=== PATIENT | female | born 1945 | race Caucasian/White ===

== ENCOUNTER → 2016-04-18 | Outpatient (CLI) | payer BC ==
[~2016-04-18] MED LIST: ASPI81TA28 PO; BIOTCAP2 PO; SIMV20TA2 PO
[2016-04-18 13:17] LABS: BASO % 0.2 %; BASO ABS # 0.01 K/uL (0-0.2); COMPLETE YES; EOS % 1.3 %; HEMATOCRIT 41.4 % (37-47); IG% 0.2 %; LYMPH % 27.9 %; LYMPH ABS # 1.77 K/uL (1.2-3.4); MEAN CELL VOLUME 88.3 fL (80-100); MEAN CORPUSCULAR HEMOGLOBIN 30.1 pg (25-34); MEAN CORPUSCULAR HGB CONC 34.1 g/dl (32-36); MEAN PLATELET VOLUME 11.3 fL (7.4-10.4); MONO % 6.8 %; NEUT % 63.6 %; PLATELET COUNT 269 K/uL (130-400); RED BLOOD COUNT 4.69 M/uL (4.2-5.4); WHITE BLOOD COUNT 6.34 K/uL (4.8-10.8)
[2016-04-18 13:39] LABS: GLUCOSE 103 mg/dl (70-99)
[2016-04-18 13:40] LABS: BLOOD UREA NITROGEN 10 mg/dl (7-18); BUN/CREATININE RATIO 12.3 (10-20); CARBON DIOXIDE 27 mmol/L (21-32); CHLORIDE 104 mmol/L (98-107); CREATININE 0.83 mg/dl (0.60-1.20); POTASSIUM 4.2 mmol/L (3.5-5.1); SODIUM 140 mmol/L (136-145)
== END | disposition home or self-care (01) ==
LOC: C.LABSPEC 12:39
PROVIDERS: ATTEND Internal Medicine
DX: M54.2 Cervicalgia (principal); I10 Essential (primary) hypertension

== ENCOUNTER → 2016-07-01 | Outpatient (CLI) | payer BC ==
--- NOTE | 2016-07-01 07:29 | DIAGNOSTIC IMAGING REPORT ---
CT OF THE CHEST WITHOUT IV CONTRAST CLINICAL HISTORY: Interstitial lung disease. Nonspecific immunological findings. COMPARISON STUDY: Chest CT May 04, 2015. CT DOSE: 242.41 mGy.cm TECHNIQUE: Axial images of the chest were obtained without IV contrast. Images were reviewed in the axial, sagittal, and coronal planes. IV contrast was not administered for this examination. FINDINGS: No enlarged axillary, mediastinal or hilar lymph nodes are present. The heart is mildly enlarged. There is no pericardial effusion. There is no pneumothorax or pleural effusion. The central airways are patent. Subpleural reticulation and groundglass opacities are similar to exam of May 04, 2015 with mild progression since exam of October 21, 2013. No definite honeycombing is identified. Bony thorax is unremarkable as is the upper abdomen. IMPRESSION: 1. Subpleural reticulation and groundglass opacities consistent with interstitial lung disease suggestive of a NSIP pattern. No significant change exam of May 04, 2015 with mild progression since study of October 21, 2013. 2. No acute intrathoracic findings. Electronically signed by: Osmani Love M.D. 07/01/2016 7:27 AM Dictated Date/Time: 07/01/2016 7:19 AM
== END | disposition home or self-care (01) ==
LOC: C.CTS 06:41
PROVIDERS: ATTEND Internal Medicine Pulmonary Disease
DX: J84.9 Interstitial pulmonary disease, unspecified (principal); R89.4 Abnormal immunological findings in specimens from other organs, systems and tissues

== ENCOUNTER → 2016-07-12 | Outpatient (CLI) | payer BC ==
[~2016-07-12] MED LIST changes: +PERFLUTREN LIPID MICROSPHERE (DEFINITY) IV ONE
--- NOTE | 2016-07-12 15:43 | EXERCISE STRESS ECHO ---
*NOTICE TO RECEIVING [employer]ENCY This information is strictly Confidential and protected under [place] law. [place] law prohibits you from making any further disclosure of this information unless further disclosure is expressly permitted by the written consent of the person to whom it pertains or is authorized by law. A general authorization for the release of medical or other information is not sufficient for this purpose. Hospital accepts no responsibility if the information is made available to any other person, INCLUDING THE PATIENT. Interpretation Summary * Name: SANDEEP VIVAS Study Date: 07/12/2016 09:40 AM BP: 137/83 mmHg * Patient Location: [facility] HR: 97 * : 1945 (M/d/yyyy) Gender: Female Height: 60 in * Age: 71 yrs Ethnicity: CA Weight: 150 lb * Ordering Physician: HUSSEIN. DONAVAN VARNER * Performed By: Gissel Moura * * Reason For Study: LEFT SIDED CHEST PAIN * BSA: 1.7 m2 * -- Conclusions -- * Stress Echo: * 1. Negative stress echo for ischemia at 108% MPHR. * 2. Negative exercise ECG for ischemia at 108% MPHR. * 3. No chest pain reported. * 4. No arrhythmia. * 5. Mildly hypertensive response to exercise. * 6. Exercised 4 minutes and 30 seconds on standard Cristo protocol. * 7. Technically difficult study, enhanced with IV Definity. * Echo: * 1. Small left ventricular cavity with normal systolic function. EF 60-65%. No regional wall motion abnormalities. No left ventricular hypertrophy. Type I diastolic dysfunction. * 2. No significant valvular abnormalities visualized. Procedure Details * ECHOEX, CPT #[id number] * ECHO DOPPLER, CPT #[id number] * ECHO COLOR FLOW, CPT #[id number] * A contrast injection of Definity was performed to improve assessment of LV function. * Contrast was injected into an intravenous site in the left arm. * One vial of Definity ultrasound contrast was diluted in normal saline to a total volume of 10 ml. A total of '4' ml of solution was administered during imaging. * Lot # [id number] of Definity utilized for procedure. * Expiration date 07/12. * The attending nurse who injected the contrast agent was ALLAN FRANCE RN. Left Ventricle * The left ventricular cavity is small. * There is normal left ventricular wall thickness. * Left ventricular systolic function is normal. * The left ventricular ejection fraction increases normally with stress. The left ventricular end-systolic cavity size reduces post-stress (normal response). The left ventricular wall motion with stress is normal. * Resting wall motion: Normal. Stress wall motion: Appropriate increase in Left ventricular systolic function and decrease in cavity size. No stress induced segmental wall motion abnormalities. Right Ventricle * The right ventricle is normal in size and function. * The right ventricular systolic function is normal as assessed by tricuspid annular plane systolic excursion (TAPSE) (normal >1.5 cm). Atria * The left atrial size is normal. * Right atrial size is normal. * There is no evidence of atrial septal defect, but resolution does not allow assessment for a patent foramen ovale. Mitral Valve * The mitral valve is grossly normal. * There is no mitral valve stenosis. * Significant mitral regurgitation is absent. Tricuspid Valve * The tricuspid valve is not well visualized. * There is no tricuspid stenosis. * There is trace tricuspid regurgitation. Aortic Valve * The aortic valve is trileaflet. * No hemodynamically significant valvular aortic stenosis. * No aortic regurgitation is present. Pulmonic Valve * The pulmonary valve is inadequately visualized, but the Doppler data is adequate for interpretation. * There is no significant pulmonary regurgitation. Great Vessels * The aortic root is normal size. * Ascending aorta of normal dimension * Normal pulmonary venous flow pattern. Pericardium * There is no pericardial effusion. Stress Parameters * NSR at 80 bpm. * Stress ECG: No ST changes. No arrhythmias. * The stress portion of this study was personally supervised by the undersigned interpreting physician. * Rest heart rate was '97' BPM. * Rest blood pressure was '137/83' * Maximum heart rate achieved was 164 bpm. * Maximum heart rate was 108 % of maximum age-predicted heart rate. * Maximum blood pressure was '201/76' * Total exercise time was '4:30' * Maximum exercise MET level achieved was '6.80' METS * Maximum treadmill speed was '2.50' miles per hour. * Maximum treadmill elevation was '12.00'% grade. * Exercise was terminated due to 'target heart rate achieved.' * The patient exhibited leg pain during exercise. * Normal blood pressure response to exercise. MMode 2D Measurements and Calculations IVSd 1.0 cm LVIDd 3.1 cm LVIDs 1.8 cm LVPWd 0.93 cm IVS/LVPW 1.1 FS 43.0 % EDV(Teich) 38.3 ml ESV(Teich) 9.4 ml EF(Teich) 75.5 % EDV(cubed) 30.2 ml ESV(cubed) 5.6 ml EF(cubed) 81.4 % LV mass(C)d 83.8 grams LV mass(C)dI 50.7 grams/m\S\2 SV(Teich) 28.9 ml SI(Teich) 17.5 ml/m\S\2 SV(cubed) 24.6 ml SI(cubed) 14.9 ml/m\S\2 Ao root diam 2.9 cm Ao root area 6.7 cm\S\2 ACS 1.0 cm LA dimension 2.9 cm asc Aorta Diam 2.9 cm LA/Ao 10 LVOT diam 2.0 cm LVOT area 3.0 cm\S\2 LVAd ap4 21.0 cm\S\2 LVLd ap4 6.9 cm EDV(MOD-sp4) 52.2 ml EDV(sp4-el) 54.0 ml LVAs ap4 12.6 cm\S\2 LVLs ap4 5.9 cm ESV(MOD-sp4) 23.9 ml ESV(sp4-el) 22.9 ml EF(MOD-sp4) 54.2 % EF(sp4-el) 57.6 % LVLd ap2 7.1 cm LVLs ap2 5.1 cm SV(MOD-sp4) 28.3 ml SI(MOD-sp4) 17.1 ml/m\S\2 SV(sp4-el) 31.1 ml SI(sp4-el) 18.8 ml/m\S\2 Doppler Measurements and Calculations MV E max jennifer 71.3 cm/sec MV A max jennifer 95.6 cm/sec MV E/A 0.75 MV dec time 0.35 sec Ao V2 max 156.1 cm/sec Ao max PG 9.7 mmHg Ao max PG (full) 6.8 mmHg CARMEN(V,A) 1.6 cm\S\2 CARMEN(V,D) 1.6 cm\S\2 LV V1 max PG 2.9 mmHg LV V1 max 85.6 cm/sec PA V2 max 68.4 cm/sec PA max PG 1.9 mmHg
--- NOTE | 2016-07-18 09:51 | CODING QUERY MEDICAL NECESSITY ---
SUPPORTING DIAGNOSIS NEEDED A supporting diagnosis is required for the test/procedure performed on this patient in order for us to be reimbursed by the patient's insurance. Please provide a supporting diagnosis for the following test/procedure listed below next to the test name along with your signature. *If there is no additional diagnosis for this patient that would support the following test/procedure please document that below next to the test/procedure. Test(s)/Procedure(s) that require a supporting diagnosis: DOS 07/12 * Exercise Stress Test DIAGNOSIS: Provider Signature: Date: Thank you Shea Douglas Health Information Management Once completed, please kindly fax back to [phone] For questions please call [phone]
== END | disposition home or self-care (01) ==
LOC: C.CPL 09:25
PROVIDERS: ATTEND Internal Medicine
DX: R07.89 Other chest pain (principal)

== ENCOUNTER → 2016-07-27 | Outpatient (CLI) | payer BC ==
[~2016-07-27] MED LIST changes: -PERFLUTREN LIPID MICROSPHERE (DEFINITY) IV ONE
== END | disposition home or self-care (01) ==
LOC: C.LAB 08:13
PROVIDERS: ATTEND Internal Medicine Pulmonary Disease
DX: J84.9 Interstitial pulmonary disease, unspecified (principal)

== ENCOUNTER → 2016-09-02 | Outpatient (CLI) | payer BC ==
[2016-09-02 12:53] LABS: ALB/GLOB RATIO 1.1 (0.9-2); ALKALINE PHOSPHATASE 83 U/L (45-117); ALT/SGPT 25 U/L (12-78); AST/SGOT 16 U/L (15-37); BLOOD UREA NITROGEN 21 mg/dl (7-18); BUN/CREATININE RATIO 20.7 (10-20); CALCIUM 10.1 mg/dl (8.5-10.1); CARBON DIOXIDE 27 mmol/L (21-32); CHLORIDE 98 mmol/L (98-107); CHOLESTEROL 161 mg/dl (0-200); CHOLESTEROL/HDL RATIO 3.1; CREATININE 0.99 mg/dl (0.60-1.20); GLUCOSE 89 mg/dl (70-99); HDL CHOLESTEROL 52 mg/dl; MAGNESIUM 2.3 mg/dl (1.8-2.4); POTASSIUM 4.5 mmol/L (3.5-5.1); SODIUM 134 mmol/L (136-145); TRIGLYCERIDES 133 mg/dl (0-150); VERY LOW DENSITY LIPOPROT CALC 27 mg/dl
== END | disposition home or self-care (01) ==
LOC: C.LABSPEC 09:30
PROVIDERS: ATTEND Internal Medicine
DX: I10 Essential (primary) hypertension (principal); E78.5 Hyperlipidemia, unspecified; R25.2 Cramp and spasm; E55.9 Vitamin D deficiency, unspecified

== ENCOUNTER → 2016-10-17 | Outpatient (CLI) | payer BC ==
--- NOTE | 2016-10-17 14:30 | MAMMOGRAPHY REPORT ---
BILATERAL DIGITAL SCREENING MAMMOGRAM WITH CAD: 10/17/2016 CLINICAL HISTORY: Routine screening. Patient has no complaints. TECHNIQUE: Current study was also evaluated with a Computer Aided Detection (CAD) system. Bilateral CC and MLO views were obtained. COMPARISON: Comparison is made to exams dated: 10/15/2015 mammogram, 10/08/2014 mammogram, 04/21/2014 u ltrasound, 04/21/2014 mammogram, 10/07/2013 mammogram, and 10/02/2012 mammogram - [facility]. BREAST COMPOSITION: There are scattered areas of fibroglandular density in both breasts. FINDINGS: No suspicious masses, calcifications, or areas of architectural distortion are noted in ei ther breast. There has been no significant interval change compared to prior exams. There are stable post surgical changes from bilateral reduction mammoplasty. Bilateral benign-appearing calcificatio ns and bilateral asymmetries are not significantly changed. IMPRESSION: ACR BI-RADS CATEGORY 2: BENIGN There is no mammographic evidence of malignancy. A 1 year screening mammogram is recommended. The pa tient will receive written notification of the results. Approximately 10% of breast cancers are not detected with mammography. A negative mammographic report should not delay biopsy if a clinically suggestive mass is present. Emma Aburto M.D. ah/:10/17/2016 08:22:24 Field Map Technician: Nguyen GARDNER)(M), [facility] letter sent: Normal 1/2 BI-RADS Code: ACR BI-RADS Category 2: Benign
== END | disposition home or self-care (01) ==
LOC: C.MAMM 07:26
PROVIDERS: ATTEND Internal Medicine
DX: Z12.31 Encounter for screening mammogram for malignant neoplasm of breast (principal)

== ENCOUNTER → 2017-01-11 | Outpatient (CLI) | payer BC ==
[2017-01-11 13:00] LABS: BASO % 0.3 %; BASO ABS # 0.02 K/uL (0-0.2); COMPLETE YES; EOS % 2.8 %; HEMATOCRIT 36.4 % (37-47); IG% 0.2 %; LYMPH % 31.1 %; LYMPH ABS # 2.03 K/uL (1.2-3.4); MEAN CELL VOLUME 88.6 fL (80-100); MEAN CORPUSCULAR HEMOGLOBIN 29.2 pg (25-34); MEAN PLATELET VOLUME 10.7 fL (7.4-10.4); MONO % 10.4 %; NEUT % 55.2 %; PLATELET COUNT 287 K/uL (130-400); RED BLOOD COUNT 4.11 M/uL (4.2-5.4); WHITE BLOOD COUNT 6.53 K/uL (4.8-10.8)
[2017-01-11 13:08] LABS: BLOOD UREA NITROGEN 17 mg/dl (7-18); BUN/CREATININE RATIO 19.1 (10-20); CARBON DIOXIDE 28 mmol/L (21-32); CHLORIDE 98 mmol/L (98-107); CHOLESTEROL 188 mg/dl (0-200); CREATININE 0.91 mg/dl (0.60-1.20); GLUCOSE 94 mg/dl (70-99); POTASSIUM 4.5 mmol/L (3.5-5.1); SODIUM 133 mmol/L (136-145)
[2017-01-11 13:11] LABS: HDL CHOLESTEROL 62 mg/dl; TRIGLYCERIDES 120 mg/dl (0-150); VERY LOW DENSITY LIPOPROT CALC 24 mg/dl
== END | disposition home or self-care (01) ==
LOC: C.LABSPEC 12:28
PROVIDERS: ATTEND Internal Medicine
DX: E78.5 Hyperlipidemia, unspecified (principal); I10 Essential (primary) hypertension; N84.1 Polyp of cervix uteri; E55.9 Vitamin D deficiency, unspecified

== ENCOUNTER → 2017-01-11 | Outpatient (CLI) | payer BC | END | disposition home or self-care (01) | LOC: C.PAPS 13:40 | PROVIDERS: ATTEND Internal Medicine | DX: Z12.4 Encounter for screening for malignant neoplasm of cervix (principal); Z78.0 Asymptomatic menopausal state; N84.1 Polyp of cervix uteri ==

== ENCOUNTER → 2017-01-19 | Outpatient (CLI) | payer BC | END | disposition home or self-care (01) | LOC: C.PATHSPEC 13:14 | PROVIDERS: ATTEND Obstetrics & Gynecology | DX: N84.1 Polyp of cervix uteri (principal) ==

== ENCOUNTER → 2017-07-13 | Outpatient (CLI) | payer BC ==
[2017-07-13 12:56] LABS: BASO % 0.3 %; BASO ABS # 0.02 K/uL (0-0.2); EOS % 3.4 %; EOS ABS # 0.22 K/uL (0-0.5); HEMOGLOBIN 12.8 g/dL (12.0-16.0); IG# 0.01 K/uL (0.00-0.02); LYMPH % 32.1 %; LYMPH ABS # 2.06 K/uL (1.2-3.4); MEAN CELL VOLUME 87.8 fL (80-100); MEAN CORPUSCULAR HEMOGLOBIN 29.6 pg (25-34); MEAN CORPUSCULAR HGB CONC 33.7 g/dl (32-36); MEAN PLATELET VOLUME 10.5 fL (7.4-10.4); MONO % 9.2 %; MONO ABS # 0.59 K/uL (0.11-0.59); NEUT % 54.8 %; NEUT ABS # 3.52 K/uL (1.4-6.5); PLATELET COUNT 292 K/uL (130-400); RED CELL DISTRIBUTION WIDTH CV 12.7 % (11.5-14.5); WHITE BLOOD COUNT 6.42 K/uL (4.8-10.8)
[2017-07-13 13:41] LABS: ALT/SGPT 25 U/L (12-78); BLOOD UREA NITROGEN 20 mg/dl (7-18); CALCIUM 10.1 mg/dl (8.5-10.1); CARBON DIOXIDE 28 mmol/L (21-32); CREATININE 0.95 mg/dl (0.60-1.20); GLUCOSE 92 mg/dl (70-99); LIPASE 133 U/L (73-393); POTASSIUM 4.2 mmol/L (3.5-5.1); SODIUM 131 mmol/L (136-145)
[2017-07-13 13:43] LABS: ALKALINE PHOSPHATASE 85 U/L (45-117); AST/SGOT 18 U/L (15-37); TOTAL PROTEIN 8.3 gm/dl (6.4-8.2)
== END | disposition home or self-care (01) ==
LOC: C.LABSPEC 12:31
PROVIDERS: ATTEND Internal Medicine
DX: I10 Essential (primary) hypertension (principal); R10.11 Right upper quadrant pain; R10.12 Left upper quadrant pain; E78.5 Hyperlipidemia, unspecified

== ENCOUNTER → 2017-07-14 | Outpatient (CLI) | payer BC ==
--- NOTE | 2017-07-14 08:24 | DIAGNOSTIC IMAGING REPORT ---
GALLBLADDER-ABD LIMITED CLINICAL HISTORY: 72 years-old Female presenting with UPPER ABD PAIN. TECHNIQUE: Real-time grayscale and limited color Doppler ultrasound imaging of the abdomen limited to the right upper quadrant was performed. COMPARISON: Ultrasound from 05/30/2006. FINDINGS: Pancreas: Visualized portions of the pancreatic head and body normal. Liver: Hyperechogenic parenchyma with heterogeneous echotexture, likely indicating fibrosis or steatosis. The liver measures 17.0 cm in maximal sagittal dimension. No sonographic evidence of hepatic mass. Main portal vein patent with normal directional flow. Biliary: No intrahepatic biliary ductal dilatation. Common bile duct measures up to 6 mm in diameter. Gallbladder: Gallbladder sludge. No evidence of gallstones, gallbladder wall thickening, gallbladder distention, or pericholecystic fluid or inflammatory change. Right kidney: Normal in appearance. No hydronephrosis. Ascites: None. Other: None. IMPRESSION: 1. Gallbladder sludge. No cholelithiasis or biliary ductal dilatation. 2. Hyperechogenic and heterogeneous liver parenchyma could indicate underlying fibrosis or steatosis. Electronically signed by: Milton Britton M.D. 07/14/2017 8:22 AM Dictated Date/Time: 07/14/2017 8:18 AM
== END | disposition home or self-care (01) ==
LOC: C.ULTR 07:07
PROVIDERS: ATTEND Internal Medicine
DX: R10.10 Upper abdominal pain, unspecified (principal)

== ENCOUNTER → 2017-07-31 | Outpatient (CLI) | payer BC ==
--- NOTE | 2017-07-31 10:08 | DIAGNOSTIC IMAGING REPORT ---
CHEST 2 VIEWS ROUTINE CLINICAL HISTORY: 72 years-old Female presenting with J84.9 Interstitial lung [id number]. TECHNIQUE: PA and lateral views of the chest were obtained. COMPARISON: 10/06/[address] from 07/01/2016. FINDINGS: Atherosclerosis of the aortic arch. Cardiac silhouette normal in size. Peripheral reticulation noted greater on the right. Mildly low lung volumes. No other focal opacity. No pleural effusion or pneumothorax. Osseous structures normal. Upper abdomen normal. IMPRESSION: 1. Chronic lung disease with peripheral reticulation suggesting fibrosis. No superimposed infiltrate to suggest infection or acute disease. Electronically signed by: Milton Britton M.D. 07/31/2017 10:06 AM Dictated Date/Time: 07/31/2017 10:05 AM
== END | disposition home or self-care (01) ==
LOC: C.RAD1850 09:24
PROVIDERS: ATTEND Internal Medicine Pulmonary Disease
DX: J84.9 Interstitial pulmonary disease, unspecified (principal)

== ENCOUNTER → 2017-10-20 | Outpatient (CLI) | payer BC ==
[~2017-10-20] MED LIST changes: +CHOL2000 PO; +LISI-461 PO; +NAPR1TAB9 PO; +TRIA37.5 PO
--- NOTE | 2017-10-20 15:39 | MAMMOGRAPHY REPORT ---
BILATERAL DIGITAL SCREENING MAMMOGRAM TOMOSYNTHESIS WITH CAD: 10/20/2017 CLINICAL HISTORY: Routine screening. Patient has no complaints. TECHNIQUE: The study was acquired using full field digital technology and interpreted from soft copy. Breast tomosynthesis in addition to standard 2D mammography was performed. Current study was also ev aluated with a Computer Aided Detection (CAD) system. COMPARISON: Comparison is made to exams dated: 10/17/2016 mammogram, 10/15/2015 mammogram, 10/08/2014 m ammogram, 04/21/2014 ultrasound, 04/21/2014 mammogram, and 10/07/2013 mammogram - [facility]. BREAST COMPOSITION: There are scattered areas of fibroglandular density in both breasts. FINDINGS: No suspicious masses, calcifications, or areas of architectural distortion are noted in either breast . There has been no significant interval change compared to prior exams. There are stable post surg ical changes from bilateral reduction mammoplasty. Bilateral benign-appearing calcifications and rosie ateral asymmetries are not significantly changed. IMPRESSION: ACR BI-RADS CATEGORY 2: BENIGN There is no mammographic evidence of malignancy. A 1 year screening mammogram is recommended.( 019) The patient will receive written notification of the results. Some breast cancers are not detected with mammography. A negative mammographic report should not klaudia y biopsy if a clinically suggestive mass is present. Emma Aburto M.D. /:10/20/2017 07:55:53 Brass Cleaner: RT Néstor(R)(M), [facility] letter sent: Normal 1/2 BI-RADS Code: ACR BI-RADS Category 2: Benign
== END | disposition home or self-care (01) ==
LOC: C.MAMM 07:41
PROVIDERS: ATTEND Internal Medicine
DX: Z12.31 Encounter for screening mammogram for malignant neoplasm of breast (principal)

== ENCOUNTER → 2017-11-01 | Outpatient (CLI) | payer BC ==
[~2017-11-01] MED LIST changes: -BIOTCAP2 PO; +OXYC-57 PO
[2017-11-01 16:12] LABS: BLOOD UREA NITROGEN 21 mg/dl (7-18); CALCIUM 9.2 mg/dl (8.5-10.1); CARBON DIOXIDE 26 mmol/L (21-32); CREATININE 1.44 mg/dl (0.60-1.20); GLUCOSE 97 mg/dl (70-99); POTASSIUM 4.4 mmol/L (3.5-5.1); SODIUM 131 mmol/L (136-145)
== END | disposition home or self-care (01) ==
LOC: C.LAB 14:25
PROVIDERS: ATTEND Internal Medicine
DX: E87.1 Hypo-osmolality and hyponatremia (principal)

== ENCOUNTER 2017-11-02 06:07 | Day surgery (SDC) | payer BC ==
[2017-10-27 08:44] VITALS: BMI 29.0
--- NOTE | 2017-10-30 11:44 | PAT Medication Instructions ---
Service Date Oct 30, 2017. Current Home Medication List Aspirin (Aspirin Ec), 81 MG PO QPM Cholecalciferol (Vitamin D3), 1 CAP PO QPM Lisinopril (Zestril), 10 MG PO BID Naproxen (Aleve), 440 MG PO PRN Simvastatin (Zocor), 20 MG PO QPM Triamterene/Hctz (Dyazide 37.5MG/25MG), 0.5 TAB PO NOON Medication Instructions For Your Scheduled Surgery -Instructions per surgeon: Aspirin (Aspirin Ec), 81 MG PO QPM Naproxen (Aleve), 440 MG PO PRN - Hold the following medications the morning of surgery: Lisinopril (Zestril), 10 MG PO BID - Take the following medications as scheduled the afternoon/night before surgery : Cholecalciferol (Vitamin D3), 1 CAP PO QPM Lisinopril (Zestril), 10 MG PO BID Simvastatin (Zocor), 20 MG PO QPM Triamterene/Hctz (Dyazide 37.5MG/25MG), 0.5 TAB PO NOON *NOTHING TO EAT OR DRINK AFTER MIDNIGHT* If you have any questions please call us at [phone] or [phone] or [phone]
[2017-10-30 12:07] VITALS: BMI 29.0
[2017-10-30 13:17] LABS: BASO % 0.3 %; BASO ABS # 0.02 K/uL (0-0.2); EOS % 3.9 %; EOS ABS # 0.23 K/uL (0-0.5); HEMATOCRIT 35.7 % (37-47); HEMOGLOBIN 12.1 g/dL (12.0-16.0); IG# 0.01 K/uL (0.00-0.02); LYMPH % 36.9 %; LYMPH ABS # 2.17 K/uL (1.2-3.4); MEAN CELL VOLUME 86.2 fL (80-100); MEAN CORPUSCULAR HEMOGLOBIN 29.2 pg (25-34); MEAN CORPUSCULAR HGB CONC 33.9 g/dl (32-36); MEAN PLATELET VOLUME 10.3 fL (7.4-10.4); MONO % 9.9 %; MONO ABS # 0.58 K/uL (0.11-0.59); NEUT % 48.8 %; NEUT ABS # 2.87 K/uL (1.4-6.5); PLATELET COUNT 277 K/uL (130-400); RED CELL DISTRIBUTION WIDTH CV 12.5 % (11.5-14.5); RED CELL DISTRIBUTION WIDTH SD 40.2 fL (36.4-46.3); WHITE BLOOD COUNT 5.88 K/uL (4.8-10.8)
[2017-10-30 14:00] LABS: CALCIUM 9.3 mg/dl (8.5-10.1); CREATININE 0.96 mg/dl (0.60-1.20); POTASSIUM 4.2 mmol/L (3.5-5.1)
[~2017-11-02] VITALS: Ht 154.9 cm; Wt 69.0 kg
[~2017-11-02 06:07] MED LIST changes: +LACTATED RINGER'S 1000ML IV SCH; -OXYC-57 PO
[2017-11-02 06:43] VITALS: BP 125/70; PULSE 69; TEMP 36.7; O2SAT 96; Ht 154.9 cm; Wt 69.0 kg
[2017-11-02] MEDS ORDERED: FENTANYL CITRATE INJ 50 MCG/1 ML 2 ML VIAL ONE ×2 (07:24→08:30)
[2017-11-02] MEDS ORDERED: MIDAZOLAM HCL 1 MG/ML 2ML VIAL ONE (07:24)
--- NOTE | 2017-11-02 07:56 | History & Physical Bridge Note ---
H&P Re-Evaluation Bridge Note: I have examined the patient, reviewed the History & Physical and in the interval since the performance of the History & Physical I have noted the following changes of clinical significance: No changes noted family at bedside' all questions answered
[2017-11-02] MEDS ORDERED: CONRAY 60% 50 ML VIAL ONE (07:59)
[2017-11-02] MEDS ORDERED: LIDOCAINE/EPINEPHRINE 1% 20 ML VIAL ONE (07:59)
[2017-11-02] MEDS ORDERED: ONDANSETRON INJ 2 MG/ML 2 ML VIAL ONE ×2 (08:27→08:50)
[2017-11-02] MEDS ORDERED: HYDROmorphone INJ 1 MG/ML SYR IV PRN (08:45)
[2017-11-02] MEDS ORDERED: FENTANYL CITRATE INJ 50 MCG/1 ML 2 ML VIAL IV PRN (08:45)
[2017-11-02] MEDS ORDERED: PHENYLEPHRINE 100MCG/ML 5ML SYR IV PRN (08:45)
[2017-11-02] MEDS ORDERED: ONDANSETRON INJ 2 MG/ML 2 ML VIAL IV PRN ×2 (08:45→09:30)
[2017-11-02] MEDS ORDERED: EpHEDrine SULFATE INJ 50 MG/ML AMP IV PRN (08:45)
[2017-11-02] MEDS ORDERED: ATROPINE SULFATE 0.1 MG/ML 5ML SYR IV PRN (08:45)
[2017-11-02] MEDS ORDERED: HYDROmorphone INJ 2 MG/ML SYR/VIAL ONE (08:49)
[2017-11-02] MEDS ORDERED: KETOROLAC TROMETHAMINE 30 MG/ML VIAL ONE (08:50)
[2017-11-02] MEDS ORDERED: DEXAMETHASONE SOD INJ 4 MG/ML VIAL ONE (08:50)
[2017-11-02] MEDS ORDERED: GLYCOPYRROLATE INJ 0.2 MG/ML VIAL ONE (08:50)
[2017-11-02] MEDS ORDERED: LIDOCAINE HCL 2% 2 ML VIAL (20MG/ML) ONE (08:50)
[2017-11-02] MEDS ORDERED: ROCURONIUM BROMIDE 10 MG/ML 5 ML VIAL ONE (08:50)
[2017-11-02] MEDS ORDERED: PROPOFOL IV EMULSION 10 MG/ML 20 ML VIAL ONE (08:50)
[2017-11-02] MEDS ORDERED: NEOSTIGMINE METHYLSULFATE 5 MG/5 ML SYR ONE (08:50)
--- NOTE | 2017-11-02 09:14 | [facility] Post Operative Brief Note ---
Immediate Operative Summary Operative Date Nov 02, 2017. Pre-Operative Diagnosis Gallbladder Sludge Post-Operative Diagnosis Gallbladder Sludge Procedure(s) Performed Laparoscopic Cholecystectomy with Cholangiogram Surgeon Dr. Prashant Londono [employer]iztalk Software Developer Surgeon(s) Madelyn Rey PA-C Estimated Blood Loss 5 ml Findings See Below as post op Specimens A.) Gallbladder and contents Anesthesia Type General
[2017-11-02] MEDS ORDERED: SODIUM CHLORIDE 0.9% 1000ML 1,000 ML IV SCH (09:27)
[2017-11-02] MEDS ORDERED: OXYC-57 PO ×2 (09:29)
[2017-11-02] MEDS ORDERED: OXYCODONE/ACETAMINOPHEN 5-325 TAB PO PRN ×2 (09:30)
--- NOTE | 2017-11-02 09:31 | Discharge Instructions ---
Discharge Instructions Date of Service Nov 02, 2017. Admission Reason for Admission: Sludge In Gallbladder Discharge Discharge Diagnosis / Problem: Sludge in Gallbladder Discharge Goals Goal(s): Decrease discomfort, Improve function Activity Recommendations Activity Limitations: as noted below Lifting Limitations: no more than 10 pounds Exercise/Sports Limitations: until after follow-up appointment May Resume Sexual Activity: after follow-up appointment Shower/Bathe: tomorrow Driving or Machine Use: resume 3 days after discharge . Instructions / Follow-Up Instructions / Follow-Up You have steri-strips over your incisions. Please leave those on- do not peel or pick them off. They will fall off by themselves in the next several days. Please follow-up with Dr. Londono in the General Surgery clinic. Please call [phone] to make an appointment if you do not have one already. Please call the clinic with any questions or concerns. Current Hospital Diet Patient's current hospital diet: Discharge Diet Recommended Diet: Regular Diet Procedures Procedures Performed: Laparoscopic Cholecystectomy with Cholangiogram Pending Studies Studies pending at discharge: yes List of pending studies: Pathology report. Medical Emergencies . Who to Call and When: Medical Emergencies: If at any time you feel your situation is an emergency, please call 911 immediately. . Non-Emergent Contact Non-Emergency issues call your: Primary Care Provider, Surgeon Call Non-Emergent contact if: temperature is above 101.5, your pain is not controlled, wound has increased drainage, wound has increased redness . "Provider Documentation" section prepared by Madelyn Rey. .
--- NOTE | 2017-11-02 10:01 | DIAGNOSTIC IMAGING REPORT ---
CHOLANGIOGRAM O.R. CLINICAL HISTORY: Intraoperative cholangiogram. COMPARISON STUDY: Right upper quadrant ultrasound July 14, 2017. FLUOROSCOPY TIME: 3.5 seconds. FINDINGS: 1 fluoroscopic image was obtained during intraoperative cholangiogram which demonstrates contrast within the duodenum. No filling defect within the common bile duct is identified to suggest choledocholithiasis. Partially opacified intrahepatic bile ducts are normal. IMPRESSION: No evidence for choledocholithiasis. Electronically signed by: Osmani Love M.D. 11/02/2017 9:59 AM Dictated Date/Time: 11/02/2017 9:58 AM
--- NOTE | 2017-11-02 10:05 | Anesthesiology Progress Note ---
Anesthesia Post Op Note Date & Time Nov 02, 2017 at 10:05 Vital Signs Pain Intensity: 0 Vital Signs Past 12 Hours Date Time Temp Pulse Resp B/P (MAP) Pulse Ox O2 Delivery O2 Flow Rate FiO2 11/02/17 10:00 61 16 149/74 98 Room Air 11/02/17 09:50 62 16 155/82 100 Oxymask 10 11/02/17 09:40 81 16 149/78 100 Oxymask 11/02/17 09:33 36.6 104 16 154/83 99 Oxymask 10 11/02/17 06:43 36.7 69 18 125/70 (88) 96 Room Air Notes Mental Status: alert / awake / arousable, participated in evaluation Pt Amnestic to Procedure: Yes Nausea / Vomiting: adequately controlled Pain: adequately controlled Airway Patency, RR, SpO2: stable & adequate BP & HR: stable & adequate Hydration State: stable & adequate Anesthetic Complications: no major complications apparent
[2017-11-02 10:20] VITALS: BP 146/73; PULSE 60; TEMP 36; O2SAT 95
--- NOTE | 2017-11-02 10:28 | OPERATIVE REPORT ---
DATE OF OPERATION: 11/02/2017 SURGEON: Prashant Londono MD [employer]ING [employer]LL OPERATOR: Madelyn Rey, physician marketing administrative assistant. PREOPERATIVE DIAGNOSIS: Chronic cholecystitis. POSTOPERATIVE DIAGNOSIS: Same. PROCEDURE: Laparoscopic cholecystectomy, intraoperative cholangiogram. SUMMARY: We had the assistance of Madelyn Rey, a physician marketing administrative assistant to help me through these procedures. She was there throughout the case. She helped with prep, retract the gallbladder, and help close. After general anesthesia, the abdomen was prepped with Betadine solution and properly draped. We made a small transverse incision above the bowel sufficient enough to place a Veress needle followed by a 5 mm trocar. Point of entry inspected, no injury identified. Under direct visualization, we placed a 5 mm epigastric trocar with preemptive local analgesia of 1% Xylocaine. Once we visualized this area, the patient had some adhesions to the anterior abdominal wall lateral to the umbilicus down toward the right gutter. We took these down by sharp dissection. It seemed to be just omental adhesions to the anterior abdominal wall. We then placed two 5 mm subcostal ports with preemptive local analgesia of 1% Xylocaine. Gallbladder was long. It was placed to traction. It had significant adhesions to the gallbladder, these were chronic in nature, these were taken down. Gallbladder was significantly long and redundant on itself. We then dissected down to the triangle of Calot. We were able to identify the lymph node easily. The artery was strictly adherent to the cystic duct, which we mobilized and clipped proximally twice and once distally and divided. The cystic duct was then identified as a takeoff of the gallbladder. A clip was placed proximally. A small opening in the cystic duct was made. A #4 urethral catheter transverse the abdominal wall, positioned in the cystic duct which revealed a very long corkscrew cystic duct, free flow of dye into the duodenum, no evidence of biliary filling defects. At this point, we checked up on the cystic duct toward the common bile duct from the initial area where we entered with the catheter, approximately another half inch or so. Catheter was removed. The cystic duct was securely clipped twice and divided. We then took the gallbladder in the antegrade fashion using electrocautery. Small bleeder from the gallbladder fossa was cauterized. The gallbladder was removed intact in an Endopouch through the epigastric port suctioned out. The subhepatic-suprahepatic area was then checked for hemostasis and appeared satisfactory. We used the lateral port site on the right to visualize the umbilical opening, and there were no adhesions to the anterior abdominal wall where we entered with the trocar. The adhesions we initially saw on the right flank go into right flank area. We divided some fine adhesions more. We did not completely take it down. This was all omentum. There was no evidence of any bowel into that area. Individual trocars removed under direct visualization and last umbilical trocar. Wounds were closed with 4-0 Monocryl. Steri-Strips applied. Procedure was tolerated well by the patient. Estimated blood loss was approximately 5 mL. Patient was taken to recovery in good condition. I attest to the content of the Intraoperative Record and any orders documented therein. Any exception s are noted below.
[2017-11-02 10:50] VITALS: BP 139/64; PULSE 52; TEMP 36.6; O2SAT 99
[2017-11-02 11:20] VITALS: BP 157/88; PULSE 53; TEMP 36.6; O2SAT 99
== END 2017-11-02 12:20 | disposition home or self-care (01) ==
LOC: C.ACU 06:07
PROVIDERS: ATTEND Surgery
DX: K81.1 Chronic cholecystitis (principal); I10 Essential (primary) hypertension; K57.90 Diverticulosis of intestine, part unspecified, without perforation or abscess without bleeding; E78.00 Pure hypercholesterolemia, unspecified; E78.5 Hyperlipidemia, unspecified; K64.8 Other hemorrhoids; Z79.82 Long term (current) use of aspirin; Z88.2 Allergy status to sulfonamides

== ENCOUNTER 2019-06-27 00:16 | Observation (INO) ==
[2019-06-27] MEDS ORDERED: ALBUTEROL HFA 8 GM INHALER INH ONE (00:51)
[2019-06-27 01:01] LABS: Basophils # (auto) 0.02 K/uL (0-0.2); Basophils % (auto) 0.2 %; Eosinophils # (auto) 0.53 K/uL (0-0.5); Hemoglobin 13.1 g/dL (12.0-16.0); Immature Granulocytes # (auto) 0.02 K/uL (0.00-0.02); Immature Granulocytes % (auto) 0.2 %; Lymphocytes # (auto) 2.81 K/uL (1.2-3.4); Lymphocytes % (auto) 26.7 %; Mean Corpuscular Hemoglobin 29.8 pg (25-34); Mean Corpuscular Hgb Conc 35.4 g/dL (32-36); Mean Corpuscular Volume 84.1 fL (80-100); Mean Platelet Volume 10.8 fL (7.4-10.4); Monocytes % (auto) 6.7 %; Neutrophils # (auto) 6.44 K/uL (1.4-6.5); Neutrophils % (auto) 61.2 %; Platelet Count 351 K/uL (130-400); RDW Coefficient of Variation 12.3 % (11.5-14.5); RDW Standard Deviation 37.8 fL (36.4-46.3); White Blood Count 10.52 K/uL (4.8-10.8)
--- NOTE | 2019-06-27 01:08 | Emergency Department Note ---
History of Present Illness General Chief complaint: Respiratory Problems Stated complaint: RESPIRATORY DIFFICULTY Time Seen by Provider: 06/27/19 00:25 Source: patient Mode of arrival: ambulatory Limitations: no limitations History of Present Illness Provider complaint: Shortness of breath Onset (ago): week(s) 3 Severity: moderate Exacerbated By: + movement Associated symptoms: + denies other symptoms Treatments prior to arrival: none This is a 74-year-old female with a history of pulmonary fibrosis who presents for increased shortness of breath. Patient states her pulmonary fibrosis had been considered mild and well-controlled until approximately a year ago when she began to have more symptoms. Patient states over the last 3 months she felt her symptoms were worsening still, particularly with exertion. 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 Patient does not currently use home oxygen, MDI or nebulizer treatments, no steroids. Patient states she and her winter in [place] and they have been down there for 2 months. No known sick contacts. They do live with other family members and they have not been ill. Patient denies any accompanying fevers or chills, cough or change in sputum, chest pain, vomiting or diarrhea, leg swelling or calf pain. Patient states she did contact her architectural intern upon arriving home yesterday, but had not received a return phone call from the office yet. She had wanted to discuss her worsening symptoms over the last several weeks. Tonight patient states after going to bed she awoke and felt more short of breath. Patient states she does typically check her pulse ox and at rest her pulse ox is in the low to mid 90s. Patient states with exertion she will frequently dropped to the 70s, however will mouna zoe with rest. Home Medications Home Medications Medication Instructions Recorded Confirmed Type aspirin 81 mg PO DAILY 04/26/18 06/27/19 History cholecalciferol (vitamin D3) 2,000 unit PO DAILY 04/26/18 06/27/19 History [Vitamin D3] lisinopril 10 mg PO BID 04/26/18 06/27/19 History simvastatin 20 mg PO DAILY 04/26/18 06/27/19 History triamterene-hydrochlorothiazid 1 tab PO DAILY 04/26/18 06/27/19 History omeprazole 10 mg PO DAILY 06/27/19 06/27/19 History doxycycline hyclate 100 mg PO BID #18 cap 04/03/20 Rx Allergies Allergy/AdvReac Type Severity Reaction Status Date / Time Sulfa (Sulfonamide Allergy Unknown ITCHING Verified 06/27/19 00:52 Antibiotics) AND RASH Sulfa Drugs Allergy Mild Rash Uncoded 06/27/19 00:52 Past Med/Surg History Medical History (Updated 06/29/19 @ 00:02 by Az Paulson) GERD (gastroesophageal reflux disease) Surgical History H/O bilateral breast reduction surgery History of bunionectomy History of salpingo-oophorectomy Hx of cholecystectomy (Resolved) Family History Other Colorectal cancer Pulmonary fibrosis Social History Preferred Language: Uzbek Communication Ability: Effective 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 and A total of 10 systems reviewed and were otherwise negative Physical Exam Vital Signs Vital Signs - 24 hr 06/27/19 00:23 06/27/19 00:32 06/27/19 01:11 Temperature 37.0 C Temperature Source Oral Pulse Rate 79 Pulse Rate [Apical] 78 Respiratory Rate 20 25 H Blood Pressure 102/77 Blood Pressure [Left Arm] 131/92 Blood Pressure Mean 85 Blood Pressure Mean [Left Arm] 105 Pulse Oximetry 88 L 100 97 Oxygen Delivery Method Room Air Nasal Cannula Nasal Cannula Oxygen Flow Rate 4 4 Sepsis Recent Fever Within 48 Hours No Sepsis New/Unexplained Change in Mental Status No Sepsis Action Taken by Nursing No Action Required 06/27/19 02:09 06/27/19 02:59 06/27/19 04:00 Temperature Temperature Source Pulse Rate Pulse Rate [Apical] 81 84 79 Respiratory Rate 26 H 26 H 18 Blood Pressure Blood Pressure [Left Arm] 147/91 H 136/96 151/79 H Blood Pressure Mean Blood Pressure Mean [Left Arm] 109 109 103 Pulse Oximetry 99 100 100 Oxygen Delivery Method Nasal Cannula Nasal Cannula Nasal Cannula Oxygen Flow Rate 4 4 4 Sepsis Recent Fever Within 48 Hours Sepsis New/Unexplained Change in Mental Status Sepsis Action Taken by Nursing 06/27/19 04:30 06/27/19 06:00 Temperature Temperature Source Pulse Rate Pulse Rate [Apical] 72 72 Respiratory Rate 23 23 Blood Pressure Blood Pressure [Left Arm] 128/81 127/81 Blood Pressure Mean Blood Pressure Mean [Left Arm] 96 96 Pulse Oximetry 99 100 Oxygen Delivery Method Nasal Cannula Nasal Cannula Oxygen Flow Rate 4 4 Sepsis Recent Fever Within 48 Hours Sepsis New/Unexplained Change in Mental Status Sepsis Action Taken by Nursing GENERAL: alert, well appearing, well nourished, mild distress, non-toxic EYE EXAM: normal conjunctiva, PERRL and EOM's grossly intact OROPHARYNX: no exudate, no erythema, lips, buccal mucosa, and tongue normal and mucous membranes are moist NECK: supple, no nuchal rigidity, no adenopathy, non-tender LUNGS: Clear to auscultation. Normal chest wall mechanics, rales at bilateral bases, mild tachypnea, no retractions, no nasal flaring, no tripoding HEART: no murmurs, S1 normal and S2 normal ABDOMEN: abdomen soft, non-tender, normo-active bowel sounds, no masses, no rebound or guarding. BACK: Back is symmetrical on inspection and there is no deformity, no midline tenderness, no CVA tenderness. SKIN: no rashes and no bruising UPPER EXTREMITIES: upper extremities are grossly normal. FROM, nml pulses b/l. LOWER EXTREMITIES: No pitting edema. FROM, nml pulses b/l. NEURO EXAM: Normal sensorium, cranial nerves II-XII grossly intact, normal speech, no gross weakness of arms, no gross weakness of legs. Gross sensation intact. Course Course 0245: Vital signs stable. 0420: Updated patient on all results. She is in agreement with plan. 0515: Discussed with Dr. Laird. Administered Medications Discontinued Medications Albuterol (Ventolin Hfa) 2 puffs INH NOW ONE Stop: 06/27/19 00:52 Last Admin: 06/27/19 01:11 Dose: 2 puffs Documented by: [id number] Albuterol (Ventolin Hfa) 2 puffs INH QID SARAH Stop: 07/27/19 09:05 Last Admin: 06/28/19 12:00 Dose: 2 puffs Documented by: [id number] Admin: 06/28/19 08:10 Dose: 2 puffs Documented by: [id number] Admin: 06/27/19 20:41 Dose: 2 puffs Documented by: [id number] Admin: 06/27/19 17:10 Dose: 2 puffs Documented by: [id number] Admin: 06/27/19 12:27 Dose: Not Given Documented by: [id number] Admin: 06/27/19 11:07 Dose: 2 puffs Documented by: [id number] Aspirin (Ecotrin Ectab) 81 mg PO DAILY SARAH Stop: 07/27/19 09:05 Last Admin: 06/28/19 08:09 Dose: 81 mg Documented by: [id number] Admin: 06/27/19 11:06 Dose: 81 mg Documented by: [id number] Doxycycline Hyclate (Vibramycin) 100 mg PO NOW STA Stop: 06/27/19 13:45 Last Admin: 06/27/19 14:23 Dose: 100 mg Documented by: [id number] Doxycycline Hyclate (Vibramycin) 100 mg PO BID SARAH Stop: 07/04/19 20:59 Last Admin: 06/28/19 08:10 Dose: 100 mg Documented by: [id number] Admin: 06/27/19 20:40 Dose: 100 mg Documented by: [id number] Heparin Sodium (Porcine) (Heparin Sodium (Porcine)) 5,000 units SQ Q12 SARAH Stop: 07/27/19 09:05 Last Admin: 06/28/19 08:15 Dose: 5,000 units Documented by: [id number] Cosigned by: [id number] Admin: 06/27/19 20:40 Dose: 5,000 units Documented by: [id number] Cosigned by: [id number] Admin: 06/27/19 12:26 Dose: 5,000 units Documented by: [id number] Cosigned by: [id number] Magnesium Sulfate/Dextrose (Magnesium Sulfate / D5w) 1 gm in 100 mls @ 100 mls/hr IV ONE ONE Stop: 06/27/19 04:45 Last Infusion: 06/27/19 05:09 Dose: 0 mls/hr Documented by: [id number] Admin: 06/27/19 03:57 Dose: 100 mls/hr Documented by: [id number] Ioversol (Optiray 320 125ml) 125 ml IV ONCE PRN PRN Reason: Interaction Checking Stop: 07/01/19 02:56 Last Admin: 06/27/19 02:57 Dose: 116 ml Documented by: [id number] Lisinopril (Zestril) 10 mg PO BID [facility] Stop: 07/27/19 09:05 Last Admin: 06/28/19 08:10 Dose: 10 mg Documented by: [id number] Admin: 06/27/19 20:40 Dose: 10 mg Documented by: [id number] Admin: 06/27/19 11:05 Dose: 10 mg Documented by: [id number] Magnesium Hydroxide (Milk Of Magnesia) 30 ml PO Q12H PRN PRN Reason: Constipation Stop: 07/27/19 09:05 Last Admin: 06/28/19 12:01 Dose: 30 ml Documented by: [id number] Ondansetron HCl (Zofran) 4 mg IV Q6H PRN PRN Reason: Nausea Stop: 07/27/19 09:05 Last Admin: 06/27/19 15:22 Dose: 4 mg Documented by: [id number] Pantoprazole Sodium (Protonix) 40 mg PO DAILY [facility] Stop: 07/27/19 09:05 Last Admin: 06/28/19 08:09 Dose: 40 mg Documented by: [id number] Admin: 06/27/19 11:06 Dose: 40 mg Documented by: [id number] Simvastatin (Zocor) 20 mg PO DAILY [facility] Stop: 07/27/19 09:05 Last Admin: 06/28/19 08:11 Dose: 20 mg Documented by: [id number] Admin: 06/27/19 11:06 Dose: 20 mg Documented by: [id number] Sodium Chloride (Sodium Chloride) 1 gm PO BID [facility] Stop: 07/27/19 20:59 Last Admin: 06/28/19 08:10 Dose: 1 gm Documented by: [id number] Admin: 06/27/19 20:40 Dose: 1 gm Documented by: [id number] Sodium Chloride (Long Nasal) Confirm Administered Dose 225 sprays .ROUTE .STK- MED ONE Stop: 06/28/19 11:55 Last Admin: 06/28/19 11:59 Dose: 225 sprays Documented by: [id number] Vitamin D (Vitamin D3) 2,000 units PO DAILY [facility] Stop: 07/28/19 08:59 Last Admin: 06/28/19 08:10 Dose: 2,000 units Documented by: [id number] Admin: 06/27/19 14:23 Dose: 2,000 units Documented by: [id number] Medical Decision Making Differential Diagnosis Differential diagnoses includes but is not limited to pneumonia, bronchitis, COPD/Asthma exacerbation, pneumothorax, pulmonary embolism, congestive heart failure, acute coronary syndrome Medical Records Attestation: I reviewed the patient's medical records. Home Medications Current Medication List: was personally reviewed by me Laboratory Data Attestation: I reviewed the patient's lab results. Result diagrams: 06/28/19 06:24 06/28/19 06:24 Lab Results 06/27/19 06/27/19 06/27/19 Range/Units 00:10 00:10 00:10 WBC 10.52 (4.8-10.8) K/uL RBC 4.40 (4.2-5.4) M/uL Hgb 13.1 (12.0-16.0) g/dL Hct 37.0 (37-47) % MCV 84.1 (80-100) fL MCH 29.8 (25-34) pg MCHC 35.4 (32-36) g/dL RDW Std Deviation 37.8 (36.4-46.3) fL RDW Coeff of Soumya 12.3 (11.5-14.5) % Plt Count 351 (130-400) K/uL MPV 10.8 H (7.4-10.4) fL Immature Gran % (Auto) 0.2 % Neut % (Auto) 61.2 % Lymph % (Auto) 26.7 % Sharkey % (Auto) 6.7 % Eos % (Auto) 5.0 % Baso % (Auto) 0.2 % Immature Gran # (Auto) 0.02 (0.00-0.02) K/uL Neut # (Auto) 6.44 (1.4-6.5) K/uL Lymph # (Auto) 2.81 (1.2-3.4) K/uL Sharkey # (Auto) 0.70 H (0.11-0.59) K/uL Eos # (Auto) 0.53 H (0-0.5) K/uL Baso # (Auto) 0.02 (0-0.2) K/uL D-Dimer 490 (0-500) ug/L FEU Sodium 124 L (136-145) mmol/L Potassium 4.1 (3.5-5.1) mmol/L Chloride 91 L (98-107) mmol/L Carbon Dioxide 26 (21-32) mmol/L Anion Gap 7.0 (3-11) BUN 14 (7-18) mg/dl Creatinine 1.17 (0.6-1.2) mg/dl Est Cr Clr Drug Dosing 37.9 ml/min Est GFR ( Amer) 53.9 Est GFR (Non-Af Amer) 46.5 BUN/Creatinine Ratio 12.2 (10-20) Glucose 111 H (70-99) mg/dl Osmolality (280-300) mOsm/kg Calcium 10.2 H (8.5-10.1) mg/dl Magnesium 1.7 L (1.8-2.4) mg/dl Total Bilirubin 0.6 (0.2-1) mg/dl AST 22 (15-37) U/L ALT 23 (12-78) U/L Alkaline Phosphatase 81 (45-117) U/L Lactate Dehydrogenase (84-246) U/L Troponin I < 0.015 (0-0.045) ng/ml NT-Pro-B Natriuret Pep 81 (0-900) pg/ml Total Protein 8.3 H (6.4-8.2) gm/dl Albumin 3.9 (3.4-5.0) gm/dl Globulin 4.4 H (2.5-4.0) gm/dl Albumin/Globulin Ratio 0.9 (0.9-2) Lipase 106 (73-393) U/L Procalcitonin (0-0.5) ng/ml Adenovirus (PCR) (NotDetected) B. pertussis DNA (PCR) (NotDetected) B.parapertussis DNA PCR (NotDetected) C. pneumoniae DNA (PCR) (NotDetected) Coronavirus (PCR) (NOT DETECTED) Coronavirus OC43 (PCR) (NotDetected) Coronavirus HKU1 (PCR) (NotDetected) Coronavirus 229E (PCR) (NotDetected) COVID-19 Pt Symptomatic COVID-19 Source Coronavirus NL63 (PCR) (NotDetected) Human Metapneumovir PCR (NotDetected) Influenza Type A (PCR) (Neg) Influenza Type B (PCR) (Neg) M. pneumoniae (PCR) (NotDetected) Parainfluenza 1 (PCR) (NotDetected) Parainfluenza 2 (PCR) (NotDetected) Parainfluenza 3 (PCR) (NotDetected) Parainfluenza 4 (PCR) (NotDetected) RSV (PCR) (NotDetected) Entero/Rhino (PCR) (NotDetected) SARS Virus RNA (PCR) (NEGATIVE) SARS-CoV-2 RNA (RT-PCR) (NEGATIVE) 06/27/19 06/27/19 06/27/19 Range/Units 00:10 00:10 00:10 WBC (4.8-10.8) K/uL RBC (4.2-5.4) M/uL Hgb (12.0-16.0) g/dL Hct (37-47) % MCV (80-100) fL MCH (25-34) pg MCHC (32-36) g/dL RDW Std Deviation (36.4-46.3) fL RDW Coeff of Soumya (11.5-14.5) % Plt Count (130-400) K/uL MPV (7.4-10.4) fL Immature Gran % (Auto) % Neut % (Auto) % Lymph % (Auto) % Sharkey % (Auto) % Eos % (Auto) % Baso % (Auto) % Immature Gran # (Auto) (0.00-0.02) K/uL Neut # (Auto) (1.4-6.5) K/uL Lymph # (Auto) (1.2-3.4) K/uL Sharkey # (Auto) (0.11-0.59) K/uL Eos # (Auto) (0-0.5) K/uL Baso # (Auto) (0-0.2) K/uL D-Dimer (0-500) ug/L FEU Sodium (136-145) mmol/L Potassium (3.5-5.1) mmol/L Chloride (98-107) mmol/L Carbon Dioxide (21-32) mmol/L Anion Gap (3-11) BUN (7-18) mg/dl Creatinine (0.6-1.2) mg/dl Est Cr Clr Drug Dosing ml/min Est GFR ( Amer) Est GFR (Non-Af Amer) BUN/Creatinine Ratio (10-20) Glucose (70-99) mg/dl Osmolality 267 L (280-300) mOsm/kg Calcium (8.5-10.1) mg/dl Magnesium (1.8-2.4) mg/dl Total Bilirubin (0.2-1) mg/dl AST (15-37) U/L ALT (12-78) U/L Alkaline Phosphatase (45-117) U/L Lactate Dehydrogenase 420 H (84-246) U/L Troponin I (0-0.045) ng/ml NT-Pro-B Natriuret Pep (0-900) pg/ml Total Protein (6.4-8.2) gm/dl Albumin (3.4-5.0) gm/dl Globulin (2.5-4.0) gm/dl Albumin/Globulin Ratio (0.9-2) Lipase (73-393) U/L Procalcitonin < 0.05 (0-0.5) ng/ml Adenovirus (PCR) (NotDetected) B. pertussis DNA (PCR) (NotDetected) B.parapertussis DNA PCR (NotDetected) C. pneumoniae DNA (PCR) (NotDetected) Coronavirus (PCR) (NOT DETECTED) Coronavirus OC43 (PCR) (NotDetected) Coronavirus HKU1 (PCR) (NotDetected) Coronavirus 229E (PCR) (NotDetected) COVID-19 Pt Symptomatic COVID-19 Source Coronavirus NL63 (PCR) (NotDetected) Human Metapneumovir PCR (NotDetected) Influenza Type A (PCR) (Neg) Influenza Type B (PCR) (Neg) M. pneumoniae (PCR) (NotDetected) Parainfluenza 1 (PCR) (NotDetected) Parainfluenza 2 (PCR) (NotDetected) Parainfluenza 3 (PCR) (NotDetected) Parainfluenza 4 (PCR) (NotDetected) RSV (PCR) (NotDetected) Entero/Rhino (PCR) (NotDetected) SARS Virus RNA (PCR) (NEGATIVE) SARS-CoV-2 RNA (RT-PCR) (NEGATIVE) 06/27/19 06/27/1920 Range/Units 00:38 00:38 00:38 WBC (4.8-10.8) K/uL RBC (4.2-5.4) M/uL Hgb (12.0-16.0) g/dL Hct (37-47) % MCV (80-100) fL MCH (25-34) pg MCHC (32-36) g/dL RDW Std Deviation (36.4-46.3) fL RDW Coeff of Soumya (11.5-14.5) % Plt Count (130-400) K/uL MPV (7.4-10.4) fL Immature Gran % (Auto) % Neut % (Auto) % Lymph % (Auto) % Sharkey % (Auto) % Eos % (Auto) % Baso % (Auto) % Immature Gran # (Auto) (0.00-0.02) K/uL Neut # (Auto) (1.4-6.5) K/uL Lymph # (Auto) (1.2-3.4) K/uL Sharkey # (Auto) (0.11-0.59) K/uL Eos # (Auto) (0-0.5) K/uL Baso # (Auto) (0-0.2) K/uL D-Dimer (0-500) ug/L FEU Sodium (136-145) mmol/L Potassium (3.5-5.1) mmol/L Chloride (98-107) mmol/L Carbon Dioxide (21-32) mmol/L Anion Gap (3-11) BUN (7-18) mg/dl Creatinine (0.6-1.2) mg/dl Est Cr Clr Drug Dosing ml/min Est GFR ( Amer) Est GFR (Non-Af Amer) BUN/Creatinine Ratio (10-20) Glucose (70-99) mg/dl Osmolality (280-300) mOsm/kg Calcium (8.5-10.1) mg/dl Magnesium (1.8-2.4) mg/dl Total Bilirubin (0.2-1) mg/dl AST (15-37) U/L ALT (12-78) U/L Alkaline Phosphatase (45-117) U/L Lactate Dehydrogenase (84-246) U/L Troponin I (0-0.045) ng/ml NT-Pro-B Natriuret Pep (0-900) pg/ml Total Protein (6.4-8.2) gm/dl Albumin (3.4-5.0) gm/dl Globulin (2.5-4.0) gm/dl Albumin/Globulin Ratio (0.9-2) Lipase (73-393) U/L Procalcitonin (0-0.5) ng/ml Adenovirus (PCR) Not Detected (NotDetected) B. pertussis DNA (PCR) Not Detected (NotDetected) B.parapertussis DNA PCR Not Detected (NotDetected) C. pneumoniae DNA (PCR) Not Detected (NotDetected) Coronavirus (PCR) NOT DETECTED (NOT DETECTED) Coronavirus OC43 (PCR) Not Detected (NotDetected) Coronavirus HKU1 (PCR) Not Detected (NotDetected) Coronavirus 229E (PCR) Not Detected (NotDetected) COVID-19 Pt Symptomatic YES COVID-19 Source NASOPHARYNGEAL Coronavirus NL63 (PCR) Not Detected (NotDetected) Human Metapneumovir PCR Not Detected (NotDetected) Influenza Type A (PCR) Neg for Influ A Not Detected (Neg) Influenza Type B (PCR) Neg for Influ B Not Detected (Neg) M. pneumoniae (PCR) Not Detected (NotDetected) Parainfluenza 1 (PCR) Not Detected (NotDetected) Parainfluenza 2 (PCR) Not Detected (NotDetected) Parainfluenza 3 (PCR) Not Detected (NotDetected) Parainfluenza 4 (PCR) Not Detected (NotDetected) RSV (PCR) Not Detected (NotDetected) Entero/Rhino (PCR) Not Detected (NotDetected) SARS Virus RNA (PCR) NEGATIVE (NEGATIVE) SARS-CoV-2 RNA (RT-PCR) NEGATIVE (NEGATIVE) Imaging Data Radiologist's Impression: CTA chest: Comparison: CT chest 12/19/2018 and 07/27/2018 Impression: No acute pulmonary embolism. Increased reticular opacities and increased infrahilar traction bronchiectasis suggestive of progressive fibrosis. Superimposed relatively diffuse bilateral groundglass opacity, new from prior, may be secondary to atelectasis/low lung volumes, active inflammatory interstitial lung disease, or mild edema. Viral pneumonia is considered less likely but cannot be excluded on the basis cross- sectional imaging. Clinical correlation and appropriate precautions/follow-up recommended. No thoracic aneurysm, dissection, or pericardial effusion. Incidental findings: Enlarged main pulmonary artery. Correlate for pulmonary arterial hypertension. Hilar/mediastinal adenopathy, increased from prior. Follow-up as indicated. Heterogenous thyroid gland may contain small nodules (versus artifact). Prior cholecystectomy. Radiologist: Mendoza Theodore MD ECG Data Attestation: I personally reviewed and interpreted this ECG as follows: Indication: + SOB/dyspnea Rhythm: + normal sinus ECG Intervals/blocks: + Normal QRS and + Normal QT-c ECG [place]: + Normal ECG ST segments: + Normal ST segments Change: no significant change Blood Pressure Blood Pressure Findings: Elevated blood pressure Blood Pressure Disposition: further management by hospitalist MDM Narrative An order was placed for continuous cardiac monitoring. The monitor shows a rate of 80 with normal sinus rhythm. Pt presents with worsening dyspnea and a history of pulmonary fibrosis that she feels has been worsening over 3 months, and became worse still 3 weeks ago. No known sick contacts however pt did winter in [place]. No home mdi/nebs or oxygen. Pt felt improved here with oxygen via nasal canula. MDI treatment given also. Labs reassuring, flu negative. Given recent travel worsening appearance of cxr, pt sent for CT. No PE, however worsening appearance of lungs, most likely from pulmonary fibrosis, however acute infection/inflammation also likely. Case discussed with hospitalist for admission given pt's hypoxia and dyspnea. They suggested additional testing including blood, biofire and covid. Labs not suggestive of COVID and given 3 weeks of worsening symptoms, I feel COVID 19 less likely. VS stable otherwise while in the ER. Pt does have a history of hyponatremia, however value today worse compared to prior. I do not suspect Legionella. Possible related to BP meds. No evidence of renal failure. Mild anemia noted, appears stable compared to prior. I do not suspect cardiac etiology contributing to SOB. No evidence of bacteremia/sepsis. Pt made aware of all results and in agreement with the plan. Impression & Plan Dyspnea, Hypoxia, Pulmonary fibrosis, Hyponatremia Discharge Plan Visit Data *Final* Discharge Date/Time: 06/27/19 08:03 Chief Complaint: Respiratory Problems Stated Complaint: RESPIRATORY DIFFICULTY ED Provider: Pheasant,Uma S. Discharge Problem: Dyspnea, Hypoxia, Pulmonary fibrosis, Hyponatremia Patient Disposition: Admitted As Inpatient Discharge Instructions Interventions: ED Discharge Assessment Last Done: 06/27/19 08:03 Discharge Problem: Dyspnea Qualifiers: Dyspnea type: shortness of breath Qualified Code(s): R06.02 - Shortness of breath
[2019-06-27 01:09] LABS: Alanine Aminotransferase 23 U/L (12-78); Albumin Level 3.9 gm/dl (3.4-5.0); Aspartate Aminotransferase 22 U/L (15-37); BUN Creatinine Ratio 12.2 (10-20); Blood Urea Nitrogen 14 mg/dl (7-18); Calcium 10.2 mg/dl (8.5-10.1); Carbon Dioxide 26 mmol/L (21-32); Chloride 91 mmol/L (98-107); Creatinine Clr Calc Pharmacy 37.9 ml/min; Est GFR (African American) 53.9; Est GFR (Non-African American) 46.5; Glucose 111 mg/dl (70-99); Lipase 106 U/L (73-393); Magnesium 1.7 mg/dl (1.8-2.4); Potassium 4.1 mmol/L (3.5-5.1); Sodium 124 mmol/L (136-145)
[2019-06-27 01:15] LABS: Albumin Globulin Ratio 0.9 (0.9-2); Alkaline Phosphatase 81 U/L (45-117); Bilirubin,Total 0.6 mg/dl (0.2-1); Globulin 4.4 gm/dl (2.5-4.0); NT Pro B Type Natriuretic Pept 81 pg/ml (0-900); Total Protein 8.3 gm/dl (6.4-8.2); Troponin I < 0.015 ng/ml (0-0.045)
[2019-06-27 01:32] LABS: Influenza A virus by PCR Neg for Influ A (Neg); Influenza B virus by PCR Neg for Influ B (Neg)
[2019-06-27] MEDS ORDERED: OPTIRAY 320 125ml IV PRN (02:57)
[2019-06-27] MEDS ORDERED: MAGNESIUM SULFATE / D5W 1 GM/100 ML BAG IV ONE (03:46)
[2019-06-27 03:59] LABS: D Dimer 490 ug/L FEU (0-500)
--- NOTE | 2019-06-27 06:03 | History & Physical Report ---
Date of Service June 27, 2019 Assessment & Plan (1) Hyponatremia: Sodium 124 upon admission, with range of 129-133. Holding triamterene/HCTZ as potential cause. Check a serum and urine osmolality. Present on Admission?: Yes (2) Acute on chronic respiratory failure with hypoxia: Acute on chronic respiratory failure with hypoxia/IPF/travel risk for COVID-19- Negative pressure with airborne precautions. Albuterol HFA 2 puffs 4 times daily with spacer. Nasal cannula oxygen, titrate to keep pulse ox 92 to 94%. Patient reports that when she walks around She has been dropping her pulse ox into the mid 70s CT of chest negative for PE. Increasing hilar and mediastinal lymphadenopathy. Increasing interstitial inflammatory/infectious process. Consult pulmonology Present on Admission?: Yes (3) Idiopathic pulmonary fibrosis: See above Present on Admission?: Yes (4) HTN (hypertension): Continue aspirin, and lisinopril. Hold triamterene/HCTZ. Present on Admission?: Yes (5) High cholesterol: Hyperlipidemia- Continue simvastatin 20 mg daily Present on Admission?: Yes (6) GERD (gastroesophageal reflux disease): On omeprazole 10 mg p.o. daily, and will change to formulary pantoprazole. Present on Admission?: Yes Admission and Anticipated Discharge Date Admission Date: 06/27/2019 Anticipated date of discharge: 06/29/19 History of Present Illness Chief Complaint: The patient presents to the emergency department with complaint of worsening shortness of breath over the past 2 to 3 weeks while in [place], and is worsened over the past few days since arrival in [place]. Primary Care Provider: Serafin Strickland MD The patient is a 74-year-old female with a past medical history including idiopathic pulmonary fibrosis, hypertension, hyperlipidemia and GERD. She has s pent the previous 2 months in [place] on vacation, and had noted worsening shortness of breath over the past 2 to 3 weeks of her stay there. She traveled by car with her and in-laws, where they drove straight through without stopping. She reports that upon arrival in the [place] area she became more short of breath, but denies any chest pain or cough. She does not typically use any inhalers or nebulizers. She does follow with pulmonology, locally Dr. Juarez and in [place] Dr. Francis. She denies any known sick exposures. Allergies Allergy/AdvReac Type Severity Reaction Status Date / Time Sulfa (Sulfonamide Allergy Unknown ITCHING Verified 06/27/19 00:52 Antibiotics) AND RASH Sulfa Drugs Allergy Mild Rash Uncoded 06/27/19 00:52 Home Medications Home Medications Medication Instructions Recorded Confirmed Type aspirin 81 mg PO DAILY 04/26/18 06/27/19 History cholecalciferol (vitamin D3) 2,000 unit PO DAILY 04/26/18 06/27/19 History [Vitamin D3] lisinopril 10 mg PO BID 04/26/18 06/27/19 History simvastatin 20 mg PO DAILY 04/26/18 06/27/19 History triamterene-hydrochlorothiazid 1 tab PO DAILY 04/26/18 06/27/19 History omeprazole 10 mg PO DAILY 06/27/19 06/27/19 History Past Med/Surg History Surgical History H/O bilateral breast reduction surgery History of bunionectomy History of salpingo-oophorectomy Hx of cholecystectomy (Resolved) Family History Other Colorectal cancer Pulmonary fibrosis Social History Preferred Language: Ecuad[place] marital status: Current Living Situation: Spouse current occupational status: retired Feels Safe at Home: Yes Smoking Status: Never smoker Review of Systems Review of Systems: The patient denies chest pain, palpitations, cough, lower extremity swelling, sore throat, fevers, chills, sweats, weight change, fatigue, nausea, vomiting, diarrhea , constipation, abdominal pain, pelvic pain, blood in urine or stool, dysuria, urinary frequency or urgency, lightheadedness, dizziness, headache, memory loss, loss of consciousness, rash, abnormal bruising or bleeding, imbalance, focal or generalized weakness, numbness or tingling in arms or legs, generalized arthralgias or myalgias, back or neck pain, or night sweats. The review of systems is otherwise negative other than for that already noted above, and at least 10 systems have been reviewed. Physical Exam Physical Exam: The patient is awake, alert and oriented 3, well developed and well nourished, normocephalic and atraumatic, sitting upright in bed, and mildly short of breath with conversation. HEENT--PERRL, EOMI, mucous membranes and oropharynx. Neck--supple. No JVD. No bruits. Thyroid normal, trachea midline, no adenopathy. Heart--normal S1 and S2. No murmurs, rubs or gallops. Lungs--dry crackles bilaterally. Mild respiratory distress with conversation, no accessory muscle use. Abdomen--normal bowel sounds and soft. Nontender. Nondistended. Extremities--no cyanosis or clubbing. No edema. There are good distal pulses b/l. Dermatologic--normal skin turgor, normal color, no abnormal lymph nodes, no rash. Neurologic--cranial nerves II through XII grossly intact. Rheumatologic--normal range of motion. Psychiatric--normal affect. Results & Data Results & Data ([facility]) Vital Signs (Past 12 Hours) Vital Signs Temp Pulse Pulse Resp BP BP Pulse Ox 06/27/19 04:30 72 23 128/81 99 06/27/19 04:00 79 18 151/79 H 100 06/27/19 02:59 84 26 H 136/96 100 06/27/19 02:09 81 26 H 147/91 H 99 06/27/19 01:11 78 25 H 131/92 97 06/27/19 00:32 100 06/27/19 00:23 98.6 F 79 20 102/77 88 L Laboratory Results Laboratory Results WBC 10.52 K/uL (4.8-10.8) 06/27/19 00:10 RBC 4.40 M/uL (4.2-5.4) 06/27/19 00:10 Hgb 13.1 g/dL (12.0-16.0) 06/27/19 00:10 Hct 37.0 % (37-47) 06/27/19 00:10 MCV 84.1 fL (80-100) 06/27/19 00:10 MCH 29.8 pg (25-34) 06/27/19 00:10 MCHC 35.4 g/dL (32-36) 06/27/19 00:10 RDW Std Deviation 37.8 fL (36.4-46.3) 06/27/19 00:10 RDW Coeff of Soumya 12.3 % (11.5-14.5) 06/27/19 00:10 Plt Count 351 K/uL (130-400) 06/27/19 00:10 MPV 10.8 fL (7.4-10.4) H 06/27/19 00:10 Immature Gran % (Auto) 0.2 % 06/27/19 00:10 Neut % (Auto) 61.2 % 06/27/19 00:10 Lymph % (Auto) 26.7 % 06/27/19 00:10 [place] % (Auto) 6.7 % 06/27/19 00:10 Eos % (Auto) 5.0 % 06/27/19 00:10 Baso % (Auto) 0.2 % 06/27/19 00:10 Immature Gran # (Auto) 0.02 K/uL (0.00-0.02) 06/27/19 00:10 Neut # (Auto) 6.44 K/uL (1.4-6.5) 06/27/19 00:10 Lymph # (Auto) 2.81 K/uL (1.2-3.4) 06/27/19 00:10 [place] # (Auto) 0.70 K/uL (0.11-0.59) H 06/27/19 00:10 Eos # (Auto) 0.53 K/uL (0-0.5) H 06/27/19 00:10 Baso # (Auto) 0.02 K/uL (0-0.2) 06/27/19 00:10 D-Dimer 490 ug/L FEU (0-500) 06/27/19 00:10 Sodium 124 mmol/L (136-145) L 06/27/19 00:10 Potassium 4.1 mmol/L (3.5-5.1) 06/27/19 00:10 Chloride 91 mmol/L (98-107) L 06/27/19 00:10 Carbon Dioxide 26 mmol/L (21-32) 06/27/19 00:10 Anion Gap 7.0 (3-11) 06/27/19 00:10 BUN 14 mg/dl (7-18) 06/27/19 00:10 Creatinine 1.17 mg/dl (0.6-1.2) 06/27/19 00:10 Est Cr Clr Drug Dosing 37.9 ml/min 06/27/19 00:10 Est GFR ( Amer) 53.9 06/27/19 00:10 Est GFR (Non-Af Amer) 46.5 06/27/19 00:10 BUN/Creatinine Ratio 12.2 (10-20) 06/27/19 00:10 Glucose 111 mg/dl (70-99) H 06/27/19 00:10 Calcium 10.2 mg/dl (8.5-10.1) H 06/27/19 00:10 Magnesium 1.7 mg/dl (1.8-2.4) L 06/27/19 00:10 Total Bilirubin 0.6 mg/dl (0.2-1) 06/27/19 00:10 AST 22 U/L (15-37) 06/27/19 00:10 ALT 23 U/L (12-78) 06/27/19 00:10 Alkaline Phosphatase 81 U/L (45-117) 06/27/19 00:10 Lactate Dehydrogenase 420 U/L (84-246) H 06/27/19 00:10 Troponin I < 0.015 ng/ml (0-0.045) 06/27/19 00:10 NT-Pro-B Natriuret Pep 81 pg/ml (0-900) 06/27/19 00:10 Total Protein 8.3 gm/dl (6.4-8.2) H 06/27/19 00:10 Albumin 3.9 gm/dl (3.4-5.0) 06/27/19 00:10 Globulin 4.4 gm/dl (2.5-4.0) H 06/27/19 00:10 Albumin/Globulin Ratio 0.9 (0.9-2) 06/27/19 00:10 Lipase 106 U/L (73-393) 06/27/19 00:10 Procalcitonin < 0.05 ng/ml (0-0.5) 06/27/19 00:10 Influenza Type A (PCR) Neg for Influ A (Neg) 06/27/19 00:38 Influenza Type B (PCR) Neg for Influ B (Neg) 06/27/19 00:38 Diagnostic Findings [facility] Patient: SANDEEP VIVAS (Female) : 49 Status: ER Date: 06/27/19 02:56 Room #: History: COUGH, FEVER, PULMONARY FIBROSIS, TRAVEL FROM [place] Slices: [phone] Priors: Pooja: Pete Wahl @ [phone] Exams: CTA CHEST Contrast: IV Amt: 116 ML OPTIRAY 320 Accession Numbers: [id number] Preliminary Findings Only See Final Report For Complete Findings CTA CHEST: COMPARISON: CT chest 12/19/18 and 07/27/18 IMPRESSION: No acute pulmonary embolism. Increased reticular opacities and increased infrahilar traction bronchiectasis suggestive of progressive fibrosis. Superimposed relatively diffuse bilateral groundglass opacity, new from prior, may be secondary to atelectasis/low lung volumes, active inflammatory interstitial lung disease, or mild edema. Viral pneumonia is considered less likely but cannot be excluded on the basis cross- sectional imaging. Clinical correlation and appropriate precautions/followup recommended. No thoracic aneurysm, dissection, or pericardial effusion. INCIDENTAL FINDINGS: Enlarged main pulmonary artery. Correlate for pulmonary arterial hypertension. Hilar/mediastinal adenopathy, increased from prior. Followup as indicated. Heterogeneous thyroid gland may contain small nodules (versus artifact). Prior cholecystectomy. Radiologist: Mendoza Theodore M.D. Study ready at 03:05 and initial results transmitted at 03:38 Communications: Clear Time Type Notes 06/27/19 03:47 Verify Receipt Verified receipt with ER clerk Sherwood - Dr. Dexter on 06/26 03:47 (-04:00) *This report constitutes a preliminary interpretation only. Non-acute findings felt to be unrelated to the clinical presentation may not be discussed in this report. The study will be interpreted and a final report will be generated by the local Radiologist the following shift. To reach the hospital radiology department call [phone]. If a discrepancy is found between the preliminary and final interpretations of this study, please notify us via our Client Portal at [email or web address] under QA Exams.You can also fax this report with a description of the discrepancy, or include the final report, to our daytime fax number [phone].If faxing, please indicate the severity of discrepancy using one of the following categories: [ ] 1 - Agree/Informational [ ] 2 - Unlikely to Affect Management [ ] 3 - Possible Eventual Change of Management [ ] 4 - Probable Immediate Change of Management For all other patient related information, please fax us at [phone]. [id number] Code Status & VTE Plan Code Status Full code VTE Prophylaxis Plan VTE Prophylaxis will be ordered: Yes PG Care Time/CCT Total # of Minutes Spent Total Time Spent with Patient: Total time spent is greater than 50% in coordination of care (as documented) at patient's floor/unit and/or counseling patient: Coding Level of Care Code 12851 Initial Inpt Care Lvl 3 Diagnoses Hyponatremia E87.1 Acute on chronic respiratory failure with hypoxia J96.21 Idiopathic pulmonary fibrosis J84.112 HTN (hypertension) I10 High cholesterol E78.00 GERD (gastroesophageal reflux disease) K21.9
[2019-06-27 06:40] LABS: Adenovirus PCR Not Detected (NotDetected); Coronavirus 229E PCR Not Detected (NotDetected); Coronavirus HKU1 PCR Not Detected (NotDetected); Coronavirus NL63 PCR Not Detected (NotDetected); Coronavirus OC43PCR Not Detected (NotDetected); Human Metapneumovirus PCR Not Detected (NotDetected); Influenza A PCR Not Detected (NotDetected); Rhinovirus/Enterovirus PCR Not Detected (NotDetected)
[2019-06-27 06:41] LABS: Bordetella parapertussis PCR Not Detected (NotDetected); Bordetella pertussis PCR Not Detected (NotDetected); Chlamydia pneumoniae PCR Not Detected (NotDetected); Influenza B PCR Not Detected (NotDetected); Mycoplasma pneumoniae PCR Not Detected (NotDetected); Parainfluenza Virus 1 PCR Not Detected (NotDetected); Parainfluenza Virus 2 PCR Not Detected (NotDetected); Parainfluenza Virus 3 PCR Not Detected (NotDetected); Parainfluenza Virus 4 PCR Not Detected (NotDetected)
--- NOTE | 2019-06-27 06:56 | XRay Report ---
XR chest 1V portable CLINICAL HISTORY: 74 years-old Female presenting with sob. TECHNIQUE: Portable upright AP view of the chest was obtained. COMPARISON: 07/24/2018. FINDINGS: Atherosclerosis of the aortic arch. Cardiac silhouette borderline enlarged. Low lung volumes. Diffuse reticulonodular opacities with a peripheral and basilar predominance as on prior exam. No new superi mposed opacity is appreciated. No large effusion or pneumothorax. Osteopenia may be present. Cholecys tectomy clips noted. IMPRESSION: 1. Chronic lung disease with diffuse reticulonodular opacities. No superimposed infiltrate to sugges t pneumonia, however, the diffuse nature of the lung disease limits diagnostic sensitivity the exam. 2. Low lung volumes. ACT 112: Negative or not required by law. Electronically signed by: Milton Britton M.D. 06/27/2019 6:55 AM
[2019-06-27 07:10] LABS: Respiratory Syncytial VirusPCR Not Detected (NotDetected)
--- NOTE | 2019-06-27 07:12 | CT Scan Report ---
CT ANGIOGRAM OF THE CHEST CLINICAL HISTORY: PE, pulm fibrosis, sob COMPARISON STUDY: 12/19/2018 TECHNIQUE: Following the IV administration of 116 mL of Optiray-320, CT angiogram of the thorax was p erformed from the thoracic inlet to the lung bases utilizing the pulmonary embolus protocol. Images a re reviewed in the axial, sagittal, and coronal planes. IV contrast was administered without complica tion. MIP imaging was performed. A dose lowering technique was utilized adhering to the principles o f ALARA. CT DOSE: 434.58 mGycm FINDINGS: There is mediastinal lymphadenopathy. A right paratracheal lymph node measures 18 mm in diameter. The re is an enlarged left hilar lymph node measuring 14 mm. There was no evidence of thoracic aortic dilatation. There were no pulmonary artery filling defects to indicate acute pulmonary embolism. No pleural effusions are visualized. There are interstitial pulmonary fibrotic changes with subpleural reticulation, and mild bronchiectas is. There is minimal honeycombing. There is slight increase in associated groundglass opacity. IMPRESSION: 1. No evidence of acute pulmonary embolism 2. Slight progression in the patient's interstitial lung disease. 3. Persistent mediastinal and hilar lymphadenopathy, minimally increased when compared the prior stud y ACT 112: Negative or not required by law. Electronically signed by: Yevgeniy Batista M.D. 06/27/2019 7:10 AM
[2019-06-27] MEDS ORDERED: ONDANSETRON INJ 2 MG/ML 2 ML VIAL IV PRN (09:06)
[2019-06-27] MEDS ORDERED: MAGNESIUM HYDROXIDE SUSP 30 ML UDC PO PRN (09:06)
[2019-06-27] MEDS ORDERED: POLYETHYLENE (MIRALAX) 17 GM PACK PO PRN (09:06)
[2019-06-27] MEDS ORDERED: ACETAMINOPHEN 325 MG TAB PO PRN (09:06)
[2019-06-27] MEDS ORDERED: ALUMINUM/MAGNESIUM SUSP 30 ML UDC PO PRN (09:06)
[2019-06-27] MEDS: lisinopriL 10 MG TAB PO SCH ×2 (11:05→20:40)
[2019-06-27] MEDS: SIMVASTATIN 20 MG TAB PO SCH (11:06)
[2019-06-27] MEDS: PANTOprazole 40 MG TAB PO SCH (11:06)
[2019-06-27] MEDS: ASPIRIN 81 MG ECTAB PO SCH (11:06)
[2019-06-27] MEDS: ALBUTEROL HFA 8 GM INHALER INH SCH ×4 (11:07→20:41)
[2019-06-27] MEDS: HEPARIN SOD 5,000 UNIT/0.5 ML VIAL SQ SCH ×2 (12:26→20:40)
--- NOTE | 2019-06-27 13:01 | Electrocardiogram Report ---
Test Reason : Blood Pressure : / mmHG Vent. Rate : 078 BPM Atrial Rate : 078 BPM P-R Int : 150 ms QRS Dur : 078 ms QT Int : 346 ms P-R-T Axes : 007 024 056 degrees QTc Int : 394 ms Normal sinus rhythm Normal ECG When compared with ECG of 26-APR-2018 11:49, No significant change was found Confirmed by Jaime Gaviria ([id number]) on 06/27/2019 1:01:17 PM Referred By: REFERRED SELF Confirmed By:Jaime Gaviria
[2019-06-27] MEDS ORDERED: DOXYCYCLINE HYCLATE 100 MG CAP PO STA (13:44)
[2019-06-27] MEDS: CHOLECALCIFEROL 1,000 UNITS 25 MCG TAB PO SCH (14:23)
--- NOTE | 2019-06-27 19:57 | Communication Note ---
Date of Service: June 27, 2019 f/u from early AM admit. d/w nursing pt w significant BENEDICT and coarse lungs no significant cough no fevers. pt herself notes that she was in [place] w - as virus spread they decided to come home - drove essentially nonstop - she notes she only got out of the car once. got home ~3-4 days ago - thought she was probably dehydrated from the trip. sob progressed some too - but no cough no cp no fevers/chills/sweats. notes as well that she's already feeling a little better BENEDICT is less. feels like she needs O2 at home. discussed f/u in [facility] as well once able - she was to be in clinical trial. notes poor PO intake last few days. nausea earlier today but improving. d/w pulmonary and charts reviewed - CT has progressed a little from prior; also suspected based on CT that pt probably has significant enough fibrosis that she would benefit from home O2 dyspnea / pulmonary fibrosis - likely predomniatly worsening of fibrosis but can't r/o concomitant infection - doxycycline; consider steroids if improvement stalls. set up for home O2. highly doubt covid - did just travel but no fevers/cough - and after review of her PFTs and CT she seems to be doing too well to have a serious superimposed respiratory infection. test is pending however. d/w pt that if she's doing well enough to go home she can self isolate until test returns hyponatremia - almost certainly due to poor oral intake superimposed on chronic hyponatremia - predomintly low solute state from poor intake. encourage intake, nausea improving shoudl help. will give salt tabs tonight. dispo - hopefully home tomorrow
[2019-06-27] MEDS: DOXYCYCLINE HYCLATE 100 MG CAP PO SCH (20:40)
[2019-06-27] MEDS: SODIUM CHLORIDE 1 GM TABLET PO SCH (20:40)
[2019-06-28 06:43] LABS: Basophils # (auto) 0.02 K/uL (0-0.2); Basophils % (auto) 0.3 %; Eosinophils # (auto) 0.45 K/uL (0-0.5); Eosinophils % (auto) 6.7 %; Hematocrit (blood only) 33.3 % (37-47); Hemoglobin 11.4 g/dL (12.0-16.0); Immature Granulocytes # (auto) 0.01 K/uL (0.00-0.02); Immature Granulocytes % (auto) 0.1 %; Lymphocytes # (auto) 1.39 K/uL (1.2-3.4); Lymphocytes % (auto) 20.6 %; Mean Corpuscular Hemoglobin 29.1 pg (25-34); Mean Corpuscular Hgb Conc 34.2 g/dL (32-36); Mean Corpuscular Volume 84.9 fL (80-100); Mean Platelet Volume 10.1 fL (7.4-10.4); Monocytes % (auto) 10.4 %; Neutrophils # (auto) 4.18 K/uL (1.4-6.5); Neutrophils % (auto) 61.9 %; Platelet Count 274 K/uL (130-400); RDW Coefficient of Variation 12.7 % (11.5-14.5); RDW Standard Deviation 39.2 fL (36.4-46.3); Red Blood Count 3.92 M/uL (4.2-5.4); White Blood Count 6.75 K/uL (4.8-10.8)
[2019-06-28 07:16] LABS: BUN Creatinine Ratio 8.6 (10-20); Calcium 9.9 mg/dl (8.5-10.1); Creatinine Clr Calc Pharmacy 47.9 ml/min; Est GFR (African American) 72.1; Est GFR (Non-African American) 62.2; Potassium 4.2 mmol/L (3.5-5.1)
[2019-06-28] MEDS: ASPIRIN 81 MG ECTAB PO SCH (08:09)
[2019-06-28] MEDS: PANTOprazole 40 MG TAB PO SCH (08:09)
[2019-06-28] MEDS: lisinopriL 10 MG TAB PO SCH (08:10)
[2019-06-28] MEDS: ALBUTEROL HFA 8 GM INHALER INH SCH ×2 (08:10→12:00)
[2019-06-28] MEDS: SODIUM CHLORIDE 1 GM TABLET PO SCH (08:10)
[2019-06-28] MEDS: CHOLECALCIFEROL 1,000 UNITS 25 MCG TAB PO SCH (08:10)
[2019-06-28] MEDS: DOXYCYCLINE HYCLATE 100 MG CAP PO SCH (08:10)
[2019-06-28] MEDS: SIMVASTATIN 20 MG TAB PO SCH (08:11)
[2019-06-28] MEDS: HEPARIN SOD 5,000 UNIT/0.5 ML VIAL SQ SCH (08:15)
[2019-06-28 09:26] LABS: COVID-19 Patient Symptomatic? YES; PAN-SARS Coronavirus RNA NEGATIVE (NEGATIVE); SARS CoV2 RNA (COVID-19) NEGATIVE (NEGATIVE); SARS Coronavirus RNA Source NASOPHARYNGEAL
[2019-06-28] MEDS ORDERED: SODIUM CHLORIDE 0.65% NA SOLN 45 ML (OCEAN) ONE (11:54)
--- NOTE | 2019-06-28 17:47 | Discharge Summary ---
Date of Service June 28, 2019 Admission HPI Per Admitting Provider The patient is a 74-year-old female with a past medical history including idiopathic pulmonary fibrosis, hypertension, hyperlipidemia and GERD. She has spent the previous 2 months in [place] on vacation, and had noted worsening shortness of breath over the past 2 to 3 weeks of her stay there. She traveled by car with her and in-laws, where they drove straight through without stopping. She reports that upon arrival in the [facility] she became more short of breath, but denies any chest pain or cough. She does not typically use any inhalers or nebulizers. She does follow with pulmonology, locally Dr. Juarez and in [place] Dr. Francis. She denies any known sick exposures. Principal Diagnosis pulmonary fibrosis Discharge Exam aao, pleasant nad heent nc at mmm breathing unlabored no cough no conversational dyspnea skin no pallor or icterus neuro no focal deficits Discharge Data Allergies Allergy/AdvReac Type Severity Reaction Status Date / Time Sulfa (Sulfonamide Allergy Unknown ITCHING Verified 06/27/19 00:52 Antibiotics) AND RASH Sulfa Drugs Allergy Mild Rash Uncoded 06/27/19 00:52 Consultations 06/27/19 05:05 ED Decision to Admit Stat 06/27/19 09:06 Consult Case Management - Discharge Planning Routine 06/27/19 19:58 Consult Case Management - Discharge Planning Routine Ordered Studies 06/27/19 02:10 CT angio chest PE protocol Urgent Hospital Course (1) Hyponatremia: from poor oral intake - now improving. baseline range 129-131, currently up to 126 - more importantly PO intake is improved. encouraged some liberalization of salt. BMP next week probably contributed to weakness (2) Acute on chronic respiratory failure with hypoxia: after w/u and review due to pulmonary fibrosis progression with probable pneumonitis treated with doxycycline COVID19 initially considered due to her travel pattern prior to getting sick but fortunately she showed no illness pattern c/w this and her swab was negative stable for home, home O2 (3) Idiopathic pulmonary fibrosis: See above, O2 at home 17/10 now, f/u PCP and pulmonary (was to be considered for clinical trial by pulmonary in [place]) (4) HTN (hypertension): home on home meds, f/u BMP next week - doubt that thiazide was main culprit in hyponatremia, rather suspect it was from poor intake (5) High cholesterol: Hyperlipidemia- Continue simvastatin 20 mg daily (6) GERD (gastroesophageal reflux disease): On omeprazole 10 mg p.o. daily, and will change to formulary pantoprazole. Total Time Total Time Spent Total Time Spent (In Minutes): <30 Discharge Plan Discharge Items Patient Disposition: Home - Home Health Services Reason For Visit: ACUTE ON CHRONIC RESPIRATORY FAILURE WITH HYPOXIA Discharge Diagnosis: pulmonary fibrosis (See below) Activity: Per Instructions section Activity Comment: with oxygen - see below Non-emergency contact: Primary Care Provider and Appeals Specialist Call non-emergency contact if: you have any medication questions, your symptoms worsen and your temperature is above 101 Follow-up/Referrals: Serafin Strickland MD [Primary Care Provider] - Diet: Regular Addtl Attending Provider Instructions: pulmonary fibrosis -it appears that the main thing making you more short of breath the last several days has mostly been the pulmonary fibrosis -again to reiterate, your symptoms and presentation did NOT appear consistent with COVID19 and fortunately your COVID swab was negative (and reported days faster than expected) -it does look a bit worse on CT than the last time (comparing from november 2018 to this hospitalization), and in discussions with dr juarez's partner simply based on imaging he was thinking that your lungs looked like someone who would benefit from oxygen, so it's possible that you simply progressed to where you needed it slowly but didn't feel it as true shortness of breath until you hit "the straw that broke the camel's back" and adding the oxygen is all you needed; however, since you also did have a fairly quick worsening we do worry about if there's a superimposed infection as a culprit - so we'll cover with doxycycline for 9 more days (total of 10) - next dose tonight -wear the oxygen all the time - target a pulse ox of 90-95% (oddly enough most research shows that once people are on oxygen, targeting "true normal" levels of 99-100% actually worsens outcomes -since you have a pulse ox, turn up or down the oxygen more targeting a pulse ox than worrying about what the oxygen is set at. (that said i'm guessing you'll probably need 2-3 at rest and more like 5-6 when walking) hyponatremia (low sodium) -your sodium does typically run low - which is common in people with chronic lung disease. however when you were admitted it was lower than you normally run (normal is about 135-145, you typically run around 129-131, when you came in you were 124 --> now you're up to 126) - this happened almost certainly from the poor oral intake of the last few days -- and it's pretty common when people are breathing worse to do a poor job eating. do as well as you can eating, and while it's definitely backwards from what i tell most people, it would be a good idea for you to eat things like soup on a regular basis. (usually we'll have the opposite - where people have to avoid sodium due to fluid retention for t heir heart) -do as well as you can eating and drinking and then we'd ask Dr Salcido to repeat labwork (BMP) next week we'll want you to follow up w Dr Salcido next week (ideally by telehealth if he is able to do similar) and then our case management/navigator team is working on setting you back up with Dr Francis. Pending Studies at Discharge: No Stand-Alone Forms: My [facility], Smoking Cessation Medications and DC Order Prescriptions: New doxycycline hyclate 100 mg Capsule 100 mg PO BID Qty: 18 RF: 0 Continued aspirin 81 mg Tablet,Delayed Release (Dr/Ec) 81 mg PO DAILY RF: 0 simvastatin 20 mg Tablet 20 mg PO DAILY RF: 0 lisinopril 10 mg Tablet 10 mg PO BID RF: 0 triamterene-hydrochlorothiazid 37.5-25 mg Tablet 1 tab PO DAILY RF: 0 cholecalciferol (vitamin D3) [Vitamin D3] 2,000 unit Tablet 2,000 unit PO DAILY RF: 0 omeprazole 40 mg capsule,delayed release(DR/EC) 10 mg PO DAILY RF: 0 Discharge Orders: Discharge Order (Routine); Ordered 06/28/19 Ordered By: Mack Arce Admission Data Admit Date/Time: 06/27/19 05:52 Attending Provider: Mack Arce Admit Provider: Shin Laird Primary Care Provider: Serafin Strickland Other Providers: Shin Laird Other Interventions: Discharge Summary Assessment (RN) Last Done: 06/28/19 17:18 DC Date/Time DO NOT enter until pt leaves facility: 06/28/19 18:19 Coding Level of Care Code D/C Day Management <30 mins Diagnoses Hyponatremia E87.1 Acute on chronic respiratory failure with hypoxia J96.21 Idiopathic pulmonary fibrosis J84.112 HTN (hypertension) I10 High cholesterol E78.00 GERD (gastroesophageal reflux disease) K21.9
== END 2019-06-28 18:19 | disposition home health service (06) ==
LOC: ED 00:16 → INTOOBSV 05:52 → SUATTDRO 05:52 → 2W 05:52

== ENCOUNTER 2019-09-15 16:32 | Inpatient (IN) ==
[2019-09-15] MEDS ORDERED: methylPREDNISolone 125 MG/2 ML VIAL IV STA (16:57)
[2019-09-15] MEDS ORDERED: ALBUT/IPRATROP 3MG/0.5MG NEB 3 ML VIAL INH STA (16:57)
--- NOTE | 2019-09-15 17:06 | Emergency Department Note ---
Impression & Plan SOB (shortness of breath) ED Provider Note NAME: SANDEEP VIVAS AGE: 74 SEX: F ARRIVES VIA: Ambulance INFORMANT: [Patient] ED PROVIDER(S): Rai Akers MD CHIEF COMPLAINT: SOB PLAN: Disposition: Admitted Condition: [Good] MEDICAL DECISION MAKING: Patient presented with worsening dyspnea. She had increased work of breathing and conversational dyspnea on examination. She has a history of pulmonary fibrosis that has rapidly progressed over the last several months but really over the last 2 weeks. Chest x-ray shows interstitial lung disease with questionable infiltrate. She does have a leukocytosis of 11,000. ECG and cardiac testing unremarkable. She was given cefepime and doxycycline for coverage after cultures. Triage Nursing notes reviewed and agree them. Vital Signs: reviewed and remarkable for [no significant abnormalities] Differential diagnosis: Reactive airway disease, pneumonia, pneumothorax, COPD, CHF, infections, cardiac ischemia, pulmonary embolism, musculoskeletal, gastrointestinal, as well as other pathologies. ER treatment provided: DuoNeb Solu-Medrol Supplemental oxygen Cefepime Diagnostics interpreted by me: ECG: Rate: 97 Rhythm:Normal sinus [place]:Normal QRS:Normal ST segements:No elevation or depression Other:No PACs or PVCs Cardiac Monitoring: Cardiac monitoring ordered by me: The patient was placed on continuous cardiac monitoring and observed. It revealed a normal sinus rhythm at 94 beats per minute without ectopy or evidence of dysrhythmia. Laboratory studies: [See below] leukocytosis on CBC. Imaging studies: [See below] chest x-ray shows interstitial lung disease and questionable infiltrate. Consultation(s): [facility] hospitalist, Dr. Shin Laird HPI: 74/F arrives for evaluation of dyspnea. The patient notes shortness of breath and dyspnea over the last several months. She was diagnosed with pulmonary fibrosis. She has had rapid progression. She is followed by pulmonology in [place]. The patient states over the last 2 weeks has had increasing oxygen requirements and work of breathing. Last night she noted significant issues with dyspnea. She had no pain. She did take a dose of Ativan to help her relax which helped slightly. She is not on any nebulizers. She had to bump her normal 6 to 8 L of oxygen up to 10 L. Pt denies LOC, headache, fevers, chills, diaphoresis, visual changes, neck pain, chest pain, nausea, vomiting, abdominal pain, back pain, melena, hematochezia, urinary symptoms, numbness, weakness, lymphadenopathy, rash, or other complaints. ROS: See above HPI for pertinent positives & negatives. A total of [10] systems reviewed and were otherwise negative. PAST MEDICAL HISTORY:[See Below] pulmonary fibrosis PAST SURGICAL HISTORY:[See Below] FAMILY HISTORY:[See Below] SOCIAL HISTORY:[See Below] no alcohol or tobacco. HOME MEDICATIONS:[See Below] ALLERGIES:[See Below] VITALS:[See Below] PHYSICAL EXAMINATION: GENERAL: Awake, alert, dyspneic-appearing, in no distress HENT: Normocephalic, atraumatic. Oropharynx unremarkable. EYES: Normal conjunctiva. Sclera non-icteric. NECK: Inspection normal. Non-tender. Supple. No nuchal rigidity. FROM. No masses. RESPIRATORY: coarse breath sounds bilaterally. No wheezes. Increased respiratory effort. Conversational dyspnea. CARDIAC: Normal rate. Normal rhythm. No murmurs. No rubs. Extremities warm and well perfused. Pulses equal. No JVD. GI: Soft, non-distended. No tenderness to palpation. No rebound or guarding. No masses. RECTAL: Deferred. MUSCULOSKELETAL: Atraumatic. Chest examination reveals no tenderness. The back is symmetrical on inspection without obvious abnormality. There is no CVA tenderness to palpation. No joint edema. LOWER EXTREMITIES: Calves are equal size bilaterally and non-tender. No edema. No discoloration. NEURO: Normal sensorium. No sensory or motor deficits noted. SKIN: No rash or jaundice noted. ED COURSE: [Critical Care:] [None] Rai Akers MD Past Med/Surg History Medical History (Updated 09/15/19 @ 17:00 by Rai Akers MD) GERD (gastroesophageal reflux disease) Surgical History H/O bilateral breast reduction surgery History of bunionectomy History of salpingo-oophorectomy Hx of cholecystectomy (Resolved) Social History Preferred Language: Ethiopian Communication Ability: Effective Electronics Warfare Technician Required: No Beliefs That Will Affect Care: None marital status: Current Living Situation: Spouse current occupational status: retired Feels Safe at Home: Yes Smoking Status: Never smoker Second Hand Exposure: No ; Hx Alcohol Use: No Hx Substance Use: No Allergies Allergies Allergy/AdvReac Type Severity Reaction Status Date / Time Sulfa (Sulfonamide Allergy Unknown ITCHING Verified 09/15/19 17:11 Antibiotics) AND RASH Sulfa Drugs Allergy Mild Rash Uncoded 09/15/19 17:11 Home Meds Home Medications Medication Instructions Recorded Confirmed aspirin 81 mg PO DAILY 04/26/18 09/15/19 cholecalciferol (vitamin D3) 2,000 unit PO DAILY 04/26/18 09/15/19 [Vitamin D3] lisinopril 10 mg PO DAILY 04/26/18 09/15/19 simvastatin 20 mg PO DAILY 04/26/18 09/15/19 triamterene-hydrochlorothiazid 1 tab PO DAILY 04/26/18 09/15/19 omeprazole 10 mg PO DAILY 06/27/19 09/15/19 Previous Rx's Medication Instructions Recorded doxycycline hyclate 100 mg PO BID #18 cap 06/28/19 Results & Data (ED) Vital Signs Vital Signs - 24 hr 09/15/19 16:50 09/15/19 16:58 09/15/19 17:23 Temperature 36.7 C Temperature Source Oral Pulse Rate 102 H Pulse Rate [Right Radial] 88 Pulse Rate from SpO2 Sensor Respiratory Rate 32 H 22 Respiratory Effort / Characteristics Spontaneous Blood Pressure 142/103 H Blood Pressure [Left Arm] Blood Pressure Mean 116 Blood Pressure Mean [Left Arm] Pulse Oximetry 98 98 98 Oxygen Delivery Method Oxymask Oxymask Oxymask Oxygen Flow Rate 8 8 8 Sepsis Recent Fever Within 48 Hours No Sepsis New/Unexplained Change in Mental Status No Sepsis Action Taken by Nursing No Action Required 09/15/19 18:09 09/15/19 19:00 09/15/19 19:01 Temperature Temperature Source Pulse Rate 80 Pulse Rate [Right Radial] 92 H Pulse Rate from SpO2 Sensor 78 Respiratory Rate 28 H 36 H Respiratory Effort / Characteristics Blood Pressure 119/79 Blood Pressure [Left Arm] 134/84 Blood Pressure Mean 90 Blood Pressure Mean [Left Arm] 100 Pulse Oximetry 98 99 Oxygen Delivery Method Oxymask Oxygen Flow Rate 8 Sepsis Recent Fever Within 48 Hours Sepsis New/Unexplained Change in Mental Status Sepsis Action Taken by Nursing 09/15/19 19:10 09/15/19 19:20 09/15/19 19:30 Temperature Temperature Source Pulse Rate 108 H 86 88 Pulse Rate [Right Radial] Pulse Rate from SpO2 Sensor 108 H 86 87 Respiratory Rate 28 H 36 H 24 Respiratory Effort / Characteristics Blood Pressure 136/79 Blood Pressure [Left Arm] Blood Pressure Mean 98 Blood Pressure Mean [Left Arm] Pulse Oximetry 91 96 Oxygen Delivery Method Oxymask Oxygen Flow Rate 8 Sepsis Recent Fever Within 48 Hours Sepsis New/Unexplained Change in Mental Status Sepsis Action Taken by Nursing 09/15/19 19:31 09/15/19 19:40 09/15/19 19:50 Temperature Temperature Source Pulse Rate 89 86 86 Pulse Rate [Right Radial] Pulse Rate from SpO2 Sensor 89 87 87 Respiratory Rate 30 H 27 H 41 H Respiratory Effort / Characteristics Blood Pressure Blood Pressure [Left Arm] Blood Pressure Mean Blood Pressure Mean [Left Arm] Pulse Oximetry 97 96 98 Oxygen Delivery Method Oxygen Flow Rate Sepsis Recent Fever Within 48 Hours Sepsis New/Unexplained Change in Mental Status Sepsis Action Taken by Nursing 09/15/19 20:00 09/15/19 20:01 09/15/19 20:10 Temperature Temperature Source Pulse Rate 85 80 89 Pulse Rate [Right Radial] Pulse Rate from SpO2 Sensor 84 80 88 Respiratory Rate 34 H 34 H 26 H Respiratory Effort / Characteristics Blood Pressure 132/82 Blood Pressure [Left Arm] Blood Pressure Mean 94 Blood Pressure Mean [Left Arm] Pulse Oximetry 96 96 97 Oxygen Delivery Method Oxygen Flow Rate Sepsis Recent Fever Within 48 Hours Sepsis New/Unexplained Change in Mental Status Sepsis Action Taken by Nursing 09/15/19 20:20 Temperature Temperature Source Pulse Rate 86 Pulse Rate [Right Radial] Pulse Rate from SpO2 Sensor 87 Respiratory Rate 32 H Respiratory Effort / Characteristics Blood Pressure Blood Pressure [Left Arm] Blood Pressure Mean Blood Pressure Mean [Left Arm] Pulse Oximetry 98 Oxygen Delivery Method Oxygen Flow Rate Sepsis Recent Fever Within 48 Hours Sepsis New/Unexplained Change in Mental Status Sepsis Action Taken by Nursing Laboratory Data Result diagrams: 09/15/19 16:17 09/15/19 16:17 Lab Results 09/15/19 09/15/19 09/15/19 Range/Units 16:17 16:17 16:17 WBC 11.65 H (4.8-10.8) K/uL RBC 3.89 L (4.2-5.4) M/uL Hgb 11.2 L (12.0-16.0) g/dL Hct 33.8 L (37-47) % MCV 86.9 (80-100) fL MCH 28.8 (25-34) pg MCHC 33.1 (32-36) g/dL RDW Std Deviation 40.7 (36.4-46.3) fL RDW Coeff of Soumya 12.8 (11.5-14.5) % Plt Count 346 (130-400) K/uL MPV 10.5 H (7.4-10.4) fL Immature Gran % (Auto) 0.2 % Neut % (Auto) 73.0 % Lymph % (Auto) 10.9 % [place] % (Auto) 7.8 % Eos % (Auto) 7.9 % Baso % (Auto) 0.2 % Immature Gran # (Auto) 0.02 (0.00-0.02) K/uL Neut # (Auto) 8.51 H (1.4-6.5) K/uL Lymph # (Auto) 1.27 (1.2-3.4) K/uL [place] # (Auto) 0.91 H (0.11-0.59) K/uL Eos # (Auto) 0.92 H (0-0.5) K/uL Baso # (Auto) 0.02 (0-0.2) K/uL PT 11.5 (9.0-12.0) Seconds INR 1.1 (0.9-1.1) APTT 34.0 H (21.0-31.0) Seconds PTT Ratio 1.2 VBG pH (7.36-7.41) VBG pCO2 (38-50) mmHg VBG pO2 mmHg VBG HCO3 mmol/L VBG O2 Saturation % VBG Base Excess mEq/L Barometric Pressure mm/Hg Sodium 132 L (136-145) mmol/L Potassium 3.6 (3.5-5.1) mmol/L Chloride 95 L (98-107) mmol/L Carbon Dioxide 32 (21-32) mmol/L Anion Gap 5.0 (3-11) BUN 10 (7-18) mg/dl Creatinine 0.75 (0.6-1.2) mg/dl Est Cr Clr Drug Dosing 59.7 ml/min Est GFR ( Amer) 92.3 Est GFR (Non-Af Amer) 79.6 BUN/Creatinine Ratio 12.9 (10-20) Glucose 113 H (70-99) mg/dl Lactate (0.4-2.0) mmol/L Calcium 10.3 H (8.5-10.1) mg/dl Magnesium 1.9 (1.8-2.4) mg/dl Total Bilirubin 0.6 (0.2-1) mg/dl AST 21 (15-37) U/L ALT 18 (12-78) U/L Alkaline Phosphatase 37 L (45-117) U/L Troponin I < 0.015 (0-0.045) ng/ml NT-Pro-B Natriuret Pep 182 (0-900) pg/ml Total Protein 8.2 (6.4-8.2) gm/dl Albumin 3.3 L (3.4-5.0) gm/dl Globulin 4.9 H (2.5-4.0) gm/dl Albumin/Globulin Ratio 0.7 L (0.9-2) 09/15/19 09/15/19 Range/Units 17:19 18:29 WBC (4.8-10.8) K/uL RBC (4.2-5.4) M/uL Hgb (12.0-16.0) g/dL Hct (37-47) % MCV (80-100) fL MCH (25-34) pg MCHC (32-36) g/dL RDW Std Deviation (36.4-46.3) fL RDW Coeff of [place]my[place] (11.5-14.5) % Plt Count (130-400) K/uL MPV (7.4-10.4) fL Immature Gran % (Auto) % Neut % (Auto) % Lymph % (Auto) % [place] % (Auto) % Eos % (Auto) % Baso % (Auto) % Immature Gran # (Auto) (0.00-0.02) K/uL Neut # (Auto) (1.4-6.5) K/uL Lymph # (Auto) (1.2-3.4) K/uL [place] # (Auto) (0.11-0.59) K/uL Eos # (Auto) (0-0.5) K/uL Baso # (Auto) (0-0.2) K/uL PT (9.0-12.0) Seconds INR (0.9-1.1) APTT (21.0-31.0) Seconds PTT Ratio VBG pH 7.43 H (7.36-7.41) VBG pCO2 50 (38-50) mmHg VBG pO2 38 mmHg VBG HCO3 33 mmol/L VBG O2 Saturation 69.7 % VBG Base Excess 7.5 mEq/L Barometric Pressure 730.8 mm/Hg Sodium (136-145) mmol/L Potassium (3.5-5.1) mmol/L Chloride (98-107) mmol/L Carbon Dioxide (21-32) mmol/L Anion Gap (3-11) BUN (7-18) mg/dl Creatinine (0.6-1.2) mg/dl Est Cr Clr Drug Dosing ml/min Est GFR ( Amer) Est GFR (Non-Af Amer) BUN/Creatinine Ratio (10-20) Glucose (70-99) mg/dl Lactate 0.9 (0.4-2.0) mmol/L Calcium (8.5-10.1) mg/dl Magnesium (1.8-2.4) mg/dl Total Bilirubin (0.2-1) mg/dl AST (15-37) U/L ALT (12-78) U/L Alkaline Phosphatase (45-117) U/L Troponin I (0-0.045) ng/ml NT-Pro-B Natriuret Pep (0-900) pg/ml Total Protein (6.4-8.2) gm/dl Albumin (3.4-5.0) gm/dl Globulin (2.5-4.0) gm/dl Albumin/Globulin Ratio (0.9-2) Administered Medications Doxycycline Hyclate 100 mg/ (Dextrose) 110 mls @ 50 mls/hr IV NOW STA Stop: 09/15/19 20:58 Last Admin: 09/15/19 19:31 Dose: 50 mls/hr Documented by: [id number] Discontinued Medications Albuterol (Duoneb) 3 ml INH NOW STA Stop: 09/15/19 16:58 Last Admin: 09/15/19 17:20 Dose: 3 ml Documented by: [id number] Cefepime HCl (Maxipime) 2,000 mg in 20 mls @ 5 mls/min IV NOW STA; Protocol Stop: 09/15/19 18:50 Last Admin: 09/15/19 19:26 Dose: 5 mls/min Documented by: [id number] Methylprednisolone (Solumedrol) 125 mg IV NOW STA Stop: 09/15/19 16:58 Last Admin: 09/15/19 17:08 Dose: 125 mg Documented by: [id number] Discharge Plan Visit Data Chief Complaint: Shortness of Breath/Dyspnea ED Provider: Rai Akers Discharge Problem: SOB (shortness of breath) Forms Stand Alone Forms: My [facility] Prescriptions Prescriptions: No Action aspirin 81 mg Tablet,Delayed Release (Dr/Ec) 81 mg PO DAILY RF: 0 simvastatin 20 mg Tablet 20 mg PO DAILY RF: 0 lisinopril 10 mg Tablet 10 mg PO DAILY RF: 0 triamterene-hydrochlorothiazid 37.5-25 mg Tablet 1 tab PO DAILY RF: 0 cholecalciferol (vitamin D3) [Vitamin D3] 2,000 unit Tablet 2,000 unit PO DAILY RF: 0 omeprazole 40 mg capsule,delayed release(DR/EC) 10 mg PO DAILY RF: 0 doxycycline hyclate 100 mg Capsule 100 mg PO BID Qty: 18 RF: 0
[2019-09-15 17:20] LABS: Basophils # (auto) 0.02 K/uL (0-0.2); Basophils % (auto) 0.2 %; Eosinophils # (auto) 0.92 K/uL (0-0.5); Eosinophils % (auto) 7.9 %; Hematocrit (blood only) 33.8 % (37-47); Hemoglobin 11.2 g/dL (12.0-16.0); Immature Granulocytes # (auto) 0.02 K/uL (0.00-0.02); Immature Granulocytes % (auto) 0.2 %; Lymphocytes # (auto) 1.27 K/uL (1.2-3.4); Lymphocytes % (auto) 10.9 %; Mean Corpuscular Hemoglobin 28.8 pg (25-34); Mean Corpuscular Hgb Conc 33.1 g/dL (32-36); Mean Corpuscular Volume 86.9 fL (80-100); Mean Platelet Volume 10.5 fL (7.4-10.4); Monocytes # (auto) 0.91 K/uL (0.11-0.59); Monocytes % (auto) 7.8 %; Neutrophils # (auto) 8.51 K/uL (1.4-6.5); Platelet Count 346 K/uL (130-400); RDW Coefficient of Variation 12.8 % (11.5-14.5); RDW Standard Deviation 40.7 fL (36.4-46.3); Red Blood Count 3.89 M/uL (4.2-5.4); White Blood Count 11.65 K/uL (4.8-10.8)
[2019-09-15 17:32] LABS: INR 1.1 (0.9-1.1); Partial Thromboplastin Ratio 1.2; Prothrombin Time 11.5 Seconds (9.0-12.0)
[2019-09-15 17:32] LABS: Base Excess VBG 7.5 mEq/L; Oxygen Saturation VBG 69.7 %; pH VBG 7.43 (7.36-7.41)
[2019-09-15 17:39] LABS: Alanine Aminotransferase 18 U/L (12-78); Albumin Level 3.3 gm/dl (3.4-5.0); Aspartate Aminotransferase 21 U/L (15-37); BUN Creatinine Ratio 12.9 (10-20); Blood Urea Nitrogen 10 mg/dl (7-18); Calcium 10.3 mg/dl (8.5-10.1); Carbon Dioxide 32 mmol/L (21-32); Chloride 95 mmol/L (98-107); Creatinine Clr Calc Pharmacy 59.7 ml/min; Est GFR (African American) 92.3; Est GFR (Non-African American) 79.6; Glucose 113 mg/dl (70-99); Magnesium 1.9 mg/dl (1.8-2.4); Potassium 3.6 mmol/L (3.5-5.1); Sodium 132 mmol/L (136-145)
[2019-09-15 17:44] LABS: Albumin Globulin Ratio 0.7 (0.9-2); Alkaline Phosphatase 37 U/L (45-117); Bilirubin,Total 0.6 mg/dl (0.2-1); Globulin 4.9 gm/dl (2.5-4.0); NT Pro B Type Natriuretic Pept 182 pg/ml (0-900); Total Protein 8.2 gm/dl (6.4-8.2); Troponin I < 0.015 ng/ml (0-0.045)
--- NOTE | 2019-09-15 18:07 | XRay Report ---
SINGLE VIEW CHEST CLINICAL HISTORY: Dyspnea. FINDINGS: An AP, portable, upright chest radiograph is compared to study dated 08/23/2019. The heart i s enlarged noting atherosclerotic calcification of the thoracic aorta. There are low lung volumes. Di ffuse interstitial thickening with changes of chronic additional lung disease are similar to previous . No large pleural effusion or pneumothorax is seen. Question superimposed airspace opacities at the left lung base. The skeletal structures are osteopenic. The bony thorax is grossly intact. Cholecyste ctomy clips are noted in the right upper quadrant. IMPRESSION: 1. Cardiomegaly with changes of chronic additional lung disease. 2. There is coarsening of the interstitium such that mild congestive change is not excluded. Clinical correlation will be required. 3. Question superimposed airspace opacities at the left lung base. Cortical clinically for evidence o f a mild infectious/inflammatory pneumonitis. ACT 112: Negative or not required by law. Electronically signed by: Christian Allen M.D. 09/15/2019 6:06 PM
[2019-09-15] MEDS ORDERED: CEFEPIME 2,000 MG/20 ML VIAL IV STA (18:47)
[2019-09-15] MEDS ORDERED: DOXYCYCLINE HYCLATE 100 MG in DEXTROSE 5% 100 ML IV STA (18:47)
[2019-09-15] MEDS ORDERED: ONDANSETRON INJ 2 MG/ML 2 ML VIAL IV PRN (20:53)
[2019-09-15] MEDS ORDERED: ACETAMINOPHEN 325 MG TAB PO PRN (20:53)
[2019-09-15] MEDS ORDERED: MAGNESIUM HYDROXIDE SUSP 30 ML UDC PO PRN (20:53)
[2019-09-15] MEDS ORDERED: POLYETHYLENE (MIRALAX) 17 GM PACK PO PRN (20:53)
[2019-09-15] MEDS ORDERED: ALUMINUM/MAGNESIUM SUSP 30 ML UDC PO PRN (20:53)
[2019-09-15] MEDS ORDERED: ENOXAPARIN INJ 40 MG/0.4 ML SYR SQ SCH (21:00)
--- NOTE | 2019-09-15 21:33 | History & Physical Report ---
Date of Service September 15, 2019 Assessment & Plan (1) Acute on chronic respiratory failure with hypoxia: Acute on chronic respiratory failure with hypoxia Interstitial lung disease history w/ worsening functional status, differential includes worsening of her lung disease vs. superimposed infection given CXR findings, or worsening congestion although she does not have any edema and a recent ECHO w/ EF of 50-55%, PE is also on the differential. COVID seems less likely given lack of sick contacts and slow progressive nature of her respiratory failure. - Albuterol HFA 2 puffs 4 times daily with spacer - Oxygen to keep 02 > 92% - consulted Pulmonology - Dr. Tellez should be contacted to coordinate pulmonary care with outpatient provider - consulted palliative care given questionable prognosis and for possible role of hospice - Solumedrol 60mg Q6H - AM CBC and CMP HTN - continue home Lisinopril - continue triamterene/HCTZ HLD - continue home simvastatin GERD - on omeprazole 10 mg PO daily, changed to formulary Pantoprazole Anxiety - Lorazepam PRN DVT: Lovenox Diet: regular Code status: DNR/DNI Dispo: admit med/surg w/ tele (2) GERD (gastroesophageal reflux disease): (3) High cholesterol: (4) HTN (hypertension): History of Present Illness Chief Complaint: shortness of breath Primary Care Provider: Serafin Strickland MD The patient is a 74-year-old female with a past medical history including idiopathic pulmonary fibrosis, hypertension, hyperlipidemia and GERD. The patient presents to the emergency department with complaint of worsening shortness of breath over the past several weeks. She was started on 2L oxygen when she was last discharged from the hospital in June. She was having difficulty walking at home which had increased progressively to 8L oxygen at home. 2 weeks ago she was increased to 10L oxygen. She explains that she is only able to walk with "baby steps". She has not been sleeping well lying down and has to sleep a chair. She has not eaten in the last day, she had a ensure drink, she attributes this to poor appetite. She was having anxiety recently and had been taking Lorazepam yesterday night and at 3AM this morning. She does not typically use any inhalers or nebulizers. She does follow with pulmonology, locally Dr. Juarez and in [place] Dr. Francis. She has seen him over video conference last in mid July. There was no clear cause for her lung disease, she has no smoking history. Her mother did have lung disease but was never on oxygen at home. She denies any known sick exposures, no recent travel, no fevers, no loss of taste or smell, no GI symptoms, she has a cough. She informed me that she was not a candidate for a lung transplant due to her age and the complications of a transplant. She asked about hospice, she was concerned with her prognosis but didn't know. Allergies Allergy/AdvReac Type Severity Reaction Status Date / Time Sulfa (Sulfonamide Allergy Unknown ITCHING Verified 09/15/19 17:11 Antibiotics) AND RASH Sulfa Drugs Allergy Mild Rash Uncoded 09/15/19 17:11 Home Medications Home Medications Medication Instructions Recorded Confirmed Type aspirin 81 mg PO DAILY 04/26/18 09/15/19 History cholecalciferol (vitamin D3) 2,000 unit PO DAILY 04/26/18 09/15/19 History [Vitamin D3] lisinopril 5 mg PO DAILY 04/26/18 09/16/19 History simvastatin 20 mg PO DAILY 04/26/18 09/15/19 History omeprazole 10 mg PO DAILY 06/27/19 09/15/19 History doxycycline hyclate 100 mg PO BID #18 cap 06/28/19 09/15/19 Rx Past Med/Surg History Medical History Chronic hypoxemic respiratory failure Dyspnea and respiratory abnormalities GERD (gastroesophageal reflux disease) Hypercalcemia Idiopathic interstitial pneumonia Surgical History H/O bilateral breast reduction surgery History of bunionectomy History of salpingo-oophorectomy Hx of cholecystectomy (Resolved) Family History Other Colorectal cancer Pulmonary fibrosis Social History Preferred Language: Kazakh Communication Ability: Effective Finish Filer Required: No Beliefs That Will Affect Care: None marital status: Current Living Situation: Spouse current occupational status: retired Feels Safe at Home: Yes Safety Concerns: Feels Safe At This Time Smoking Status: Never smoker Second Hand Exposure: No ; Hx Alcohol Use: No Hx Substance Use: No Review of Systems Review of Systems: Constitutional: denies fever/chills, nausea, night sweats; admits fatigue and weight loss Head: denies trauma, lightheadedness, changes in vision Neurologic: denies presyncope or syncope ENT: denies sore throat, allergies, admits sneezing more recently Cardiac: denies chest pain, palpitations, or leg edema; admits PND, [facility] Pulmonology: admits cough with a small amount of sputum production that does not smell GI: denies diarrhea, changes in bowel habit, color or blood. Physical Exam Constitutional: in acute respiratory distress, struggling to speak in full sentences Eyes: PERRL, conjunctivae normal, anicteric sclerae ENMT: external ear and nose normal, oropharynx normal Nose: no nasal mucous membrane abnormality Neck: normal visual inspection Respiratory: + labored breathing and + retractions; no cough bilaterally course breath sounds without focal findings Cardiovascular: RRR, no murmur, no edema Vessels: no JVD Chest (Breasts): Chest: normal inspection of chest Gastrointestinal (Abdomen): normal bowel sounds, soft, nontender, no hepatosplenomegaly Musculoskeletal: no cyanosis or clubbing, extremities motor strength 5/5 Skin: no rashes, warm and dry Psychiatric: Orientation: alert and oriented x 3 Affect: + anxious affect Lymphatic: no cervical or axillary lymphadenopathy Results & Data Results & Data ([facility]) Vital Signs (Past 12 Hours) Vital Signs Temp Pulse Pulse Resp BP BP Pulse Ox 09/15/19 21:10 84 37 H 93 09/15/19 21:01 88 29 H 94 09/15/19 21:00 87 30 H 118/86 97 09/15/19 20:50 86 36 H 97 09/15/19 20:41 81 26 H 111/93 90 09/15/19 20:40 79 35 H 92 09/15/19 20:31 85 35 H 97 09/15/19 20:30 87 33 H 111/93 97 09/15/19 20:20 86 32 H 98 09/15/19 20:10 89 26 H 97 09/15/19 20:01 80 34 H 96 09/15/19 20:00 85 34 H 132/82 96 09/15/19 19:50 86 41 H 98 09/15/19 19:40 86 27 H 96 09/15/19 19:31 89 30 H 97 09/15/19 19:30 88 24 136/79 96 09/15/19 19:20 86 36 H 91 09/15/19 19:10 108 H 28 H 09/15/19 19:01 80 36 H 99 09/15/19 19:00 119/79 09/15/19 18:09 92 H 28 H 134/84 98 09/15/19 17:23 88 22 98 09/15/19 16:58 98 09/15/19 16:50 36.7 C 102 H 32 H 142/103 H 98 Most recent ECHO: 50-55% CXR: coarse w/ mild congestion w/ concern for infection/ inflammatory pneumonitis Chemistry (BMP) Results BMP Results: Sodium 132 mmol/L (136-145) L 09/16/19 Potassium 3.9 mmol/L (3.5-5.1) 09/16/19 Chloride 96 mmol/L (98-107) L 09/16/19 BUN 11 mg/dl (7-18) 09/16/19 Creatinine 0.62 mg/dl (0.6-1.2) 09/16/19 Glucose 134 mg/dl (70-99) H 09/16/19 Code Status & VTE Plan Code Status DNR VTE Prophylaxis Plan VTE Prophylaxis will be ordered: Yes Supervising Physician Co-Signing Physician Notes Attending addendum: I have physically seen this patient, have supervised the medical residents activities, and agree with the H&P unless as otherwise noted. Assessment and Plan: Acute on chronic respiratory failure with hypoxia/severe and progressive interstitial lung disease- Admit to monitored bed. Presently on 10 L oxygen mask to maintain pulse ox approximately 92%. Duonebs every 4 hours while awake and every 2 hours when necessary. Consult pulmonology. Keep [place] pulmonology informed. Solu-Medrol 60 mg IV every 6 hours. Doxycycline 100 mg IV every 12 hours Consult palliative care DNR/DNI Hypertension- Continue lisinopril and triamterene/HCTZ Hyperlipidemia- Continue simvastatin GERD- Change omeprazole to pantoprazole Remaining orders and notations as noted. Resident Activity Tracking Resident Involvement: Resident Care Provided Care Provided: Adult Hospital Medicine
[2019-09-16] MEDS: ENOXAPARIN INJ 40 MG/0.4 ML SYR SQ SCH ×2 (00:24→20:50)
[2019-09-16] MEDS: methylPREDNISolone 60 MG in SYRINGE 0 ML IV SCH ×5 (00:25→23:54)
[2019-09-16] MEDS ORDERED: methylPREDNISolone 125 MG/2 ML VIAL IV SCH ×2 (01:00→09:00)
[2019-09-16] MEDS ORDERED: ALBUTEROL HFA 8 GM INHALER INH PRN (05:36)
[2019-09-16] MEDS: LORazepam 0.5 MG TAB PO PRN ×3 (06:13→18:27)
[2019-09-16 07:19] LABS: Hematocrit (blood only) 34.4 % (37-47); Hemoglobin 11.1 g/dL (12.0-16.0); Immature Granulocytes # (auto) 0.02 K/uL (0.00-0.02); Immature Granulocytes % (auto) 0.2 %; Lymphocytes # (auto) 0.74 K/uL (1.2-3.4); Lymphocytes % (auto) 8.7 %; Mean Corpuscular Hgb Conc 32.3 g/dL (32-36); Mean Corpuscular Volume 86.6 fL (80-100); Mean Platelet Volume 10.3 fL (7.4-10.4); Monocytes # (auto) 0.12 K/uL (0.11-0.59); Monocytes % (auto) 1.4 %; Neutrophils # (auto) 7.66 K/uL (1.4-6.5); Neutrophils % (auto) 89.7 %; Platelet Count 350 K/uL (130-400); RDW Coefficient of Variation 12.5 % (11.5-14.5); RDW Standard Deviation 40.1 fL (36.4-46.3); Red Blood Count 3.97 M/uL (4.2-5.4); White Blood Count 8.54 K/uL (4.8-10.8)
[2019-09-16 07:45] LABS: Albumin Level 3.1 gm/dl (3.4-5.0); BUN Creatinine Ratio 18.3 (10-20); Calcium 10.8 mg/dl (8.5-10.1); Creatinine Clr Calc Pharmacy 72.2 ml/min; Est GFR (African American) 104.4; Est GFR (Non-African American) 90.1; Potassium 3.9 mmol/L (3.5-5.1)
[2019-09-16 07:47] LABS: Albumin Globulin Ratio 0.6 (0.9-2); Bilirubin,Total 0.7 mg/dl (0.2-1); Globulin 5.1 gm/dl (2.5-4.0); Total Protein 8.2 gm/dl (6.4-8.2)
[2019-09-16] MEDS: DOXYCYCLINE HYCLATE 100 MG in DEXTROSE 5% 100 ML IV SCH ×2 (08:05→20:48)
[2019-09-16] MEDS: SIMVASTATIN 20 MG TAB PO SCH (08:06)
[2019-09-16] MEDS: ASPIRIN 81 MG ECTAB PO SCH (08:06)
[2019-09-16] MEDS: PANTOprazole 40 MG TAB PO SCH (08:06)
[2019-09-16] MEDS ORDERED: TRIAMTERENE/HCTZ 37.5/25MG TAB PO SCH (09:00)
[2019-09-16] MEDS ORDERED: lisinopriL 10 MG TAB PO SCH (09:00)
--- NOTE | 2019-09-16 09:40 | Pulmonary Consultation ---
Date of Consultation September 16, 2019 Assessment & Plan (1) Acute on chronic respiratory failure with hypoxia: 74-year-old female with a past medical history of chronic hypoxemic respiratory failure, idiopathic interstitial pneumonia and hypertension presenting to the hospital with increasing shortness of breath over the last 2 to 3 days. Patient notes that she was unable to breathe comfortably at rest and began to notice significant shortness of breath with minimal exertion. She has been started on 60 mg IV Solu-Medrol every 6 hours. She is also on doxycycline 100 mg twice daily. Recommend checking pro calcitonin level. Interestingly, she has an elevated calcium and this can be seen in sarcoidosis. I would recommend getting a PTH and a total vitamin D level. Although, at this point given the degree of fibrosis and hypoxemia that she chronically has, kneeling down a specific diagnosis at this time will not likely change the course of her prognosis. I did discuss palliative care and hospice with her. She notes her primary care has brought up hospice in the past. She would be interested in discussing these topics with our palliative care colleagues. Recommend consulting them on this admission. The goal at this point should be symptom control. We can continue with the steroids for the time being and likely wean down over the next day or 2. Hopefully some of her infiltrates are steroid responsive. Again the differential for this type of presentation is broad including nonspecific interstitial pneumonia, rheumatological interstitial lung disease, organizing pneumonia, UIP/IPF. The newer anti-fibrotic agents are not typically started in an acute phase of disease or an inpatient setting as they have a number of significant side effects and take time to work. I think that her lung disease has likely progressed too far for her to achieve a signif icant benefit from these anti-fibrotic medications. Her overall prognosis is poor. We will continue to follow along with you. (2) Chronic hypoxemic respiratory failure: (3) Hyponatremia: (4) Hypercalcemia: (5) Dyspnea and respiratory abnormalities: (6) Idiopathic interstitial pneumonia: History of Present Illness Reason for Consultation: Pulmonary fibrosis exacerbation Requesting Physician: Hospitalist Attending Physician: Mars Moura MD History of Present Illness 74-year-old female with a past medical history of hypertension, gastroesophageal reflux disease, pulmonary fibrosis and chronic hypoxemic respiratory failure presenting to the hospital due to increasing shortness of breath. Pulmonary is consulted for evaluation of her interstitial lung disease. The patient follows with Dr. roya manzano and [facility] pulmonology. She previously saw Dr. Francis of [facility] on August 08, 2019. At that time, Dr. Francis noted that the patient has probable idiopathic pulmonary fibrosis versus familial pulmonary fibrosis as well as physiologic progression of her disease. There is a plan at that time to enroll her into a clinical trial. She notes to me that she is not interested in new medications or trials at this time given the concern of side effects. She notes that prior to June she was not requiring any oxygen and since that time she has been having escalating requirements of oxygen initially from 2 L and now to 10 L at rest. She is a lifelong non-smoker. 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 Her works fo [employer] in the supervisor inspection room for most of his life. They do not have any pets at home. They live alone. No recent sick contacts or travel. She has a minimal cough that is improving as her lisinopril dose has been tapered down by her outpatient primary care physician. She denies any hemoptysis. No fevers or chills. No recent sick contacts. No coronavirus contacts. She apparently had a positive DANGELO and SSA antibody at [facility] but most recent testing was negative. Most recent PFT that I can find in our system is from 03/26/2019 which demonstrated a nonspecific spirometric pattern with an FEV1 and FVC of 58% predicted and 53% predicted respectively. Total lung capacity was 46% predicted. DLCO was unreliable. There is no significant postbronchodilator response seen on spirometry. Notably during this hospitalization her sodium is a bit low at 132 and her calcium is elevated 10.8. Albumin is 3.1. Corrected calcium is 11.5. Echocardiogram on 09/11/2019 demonstrated an EF of 60 to 65% with a normal right ventricle. Normal right ventricular systolic pressure was noted. Atria were normal in size. Allergies Allergy/AdvReac Type Severity Reaction Status Date / Time Sulfa (Sulfonamide Allergy Unknown ITCHING Verified 09/15/19 17:11 Antibiotics) AND RASH Sulfa Drugs Allergy Mild Rash Uncoded 09/15/19 17:11 Home Medications Home Medications Medication Instructions Recorded Confirmed Type aspirin 81 mg PO DAILY 04/26/18 09/15/19 History cholecalciferol (vitamin D3) 2,000 unit PO DAILY 04/26/18 09/15/19 History [Vitamin D3] lisinopril 10 mg PO DAILY 04/26/18 09/15/19 History simvastatin 20 mg PO DAILY 04/26/18 09/15/19 History triamterene-hydrochlorothiazid 1 tab PO DAILY 04/26/18 09/15/19 History omeprazole 10 mg PO DAILY 06/27/19 09/15/19 History doxycycline hyclate 100 mg PO BID #18 cap 06/28/19 09/15/19 Rx Patient History Medical History GERD (gastroesophageal reflux disease) Surgical History H/O bilateral breast reduction surgery History of bunionectomy History of salpingo-oophorectomy Hx of cholecystectomy (Resolved) Family History Other Colorectal cancer Pulmonary fibrosis Social History Preferred Language: Armenian Communication Ability: Effective 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 She has an oxygen mask in place. Appears a bit older than her stated age. Eyes: PERRL, conjunctivae normal, anicteric sclerae ENMT: external ear and nose normal, oropharynx normal Neck: normal visual inspection Respiratory: Diffuse bilateral crackles. Tachypneic. Cardiovascular: RRR, no murmur, no edema Gastrointestinal (Abdomen): normal bowel sounds, soft, nontender, no hepatosplenomegaly Skin: no rashes, warm and dry Neurologic: PERRL, EOMI, accommodation nl, no face palsy, no dysarthria Psychiatric: A+Ox3, euthymic affect Results & Data Results & Data ([facility]) Vital Signs (Past 12 Hours) Vital Signs Temp Pulse Pulse Resp BP BP Pulse Ox 09/16/19 07:09 98.1 F 84 22 155/80 H 94 09/16/19 02:40 97.5 F L 84 20 136/82 94 09/15/19 22:30 97.5 F L 95 H 38 H 130/80 89 L 09/15/19 21:50 81 33 H 90 09/15/19 21:40 81 32 H 94 09/15/19 21:31 84 32 H 91 09/15/19 21:30 86 30 H 131/84 93 I personally reviewed her labs, chest imaging and previous notes. PG Care Time/CCT Total # of Minutes Spent Total Time Spent with Patient: Total time spent is greater than 50% in coordination of care (as documented) at patient's floor/unit and/or counseling patient: Coding Level of Care Code 13020 Initial Inpt Care Lvl 3 Diagnoses Acute on chronic respiratory failure with hypoxia J96.21 Chronic hypoxemic respiratory failure J96.11 Hyponatremia E87.1 Hypercalcemia E83.52 Dyspnea and respiratory abnormalities R06.00; R06.89 Idiopathic interstitial pneumonia J84.111
--- NOTE | 2019-09-16 11:10 | Electrocardiogram Report ---
Test Reason : Blood Pressure : / mmHG Vent. Rate : 097 BPM Atrial Rate : 097 BPM P-R Int : 138 ms QRS Dur : 078 ms QT Int : 308 ms P-R-T Axes : 003 023 043 degrees QTc Int : 391 ms Normal sinus rhythm Normal ECG When compared with ECG of 22-AUG-2019 23:19, No significant change was found Confirmed by Jaime Gaviria ([id number]) on 09/16/2019 11:09:33 AM Referred By: REFERRED SELF Confirmed By:Jaime Gaviria
--- NOTE | 2019-09-16 13:51 | Palliative Care Consultation ---
Date of Consultation September 16, 2019 Assessment & Plan (1) Palliative care encounter: Briefly patient is a 74-year-old female with a history of pulmonary fibrosis and chronic respiratory failure who has had a rapid decline in her respiratory function starting this past June. Patient has been on no O2 prior to June, was started on 2 L, has required titration up to 10 L. Patient does have a family history of pulmonary fibrosis. Patient presented to the emergency room on 09/14 for increasing shortness of breath, patient was placed on Solu-Medrol and IV doxycycline. Patient reports no significant change in her respiratory status since admission. Patient gets short of breath with conversation, minimal exertion increases her shortness of breath as well as her anxiety. Patient requested PRN Ativan prior to transfer to bedside commode this afternoon as well as of PRN Ativan given earlier this a.m.. Patient reports weight loss despite a good appetite-her current weight is 142 pounds, she was 150 pounds approximately 1 year ago. Patient does not have a history of smoking, her PFTs showed no response with bronchodilators. Patient is , they have 1 son, Enoc, who does live nearby and is able to assist with care. -Discussed patient's goals of care-patient would like to return home, does not find hospitalization helpful any further. Patient amenable to hospice referral. Patient's and son are traveling to [place] for an appointment and are not available to speak to at this time. Patient stated she would like to move forward with hospice referral, she will talk to her and son this evening. -Collaborated with case management regarding hospice referral -diagnosis idiopathic pulmonary fibrosis and chronic respiratory failure -Current CODE STATUS is DNR (2) Acute on chronic respiratory failure with hypoxia: Rapid decline in pulmonary function since June of this year. Now requiring 10 L at rest via oxy mask (3) Anxiety: Continue PRN Ativan for anxiety History of Present Illness Reason for Consultation: Address goals of care Requesting Physician: Dr. Phi Kowalski Attending Physician: Mars Moura MD History of Present Illness Briefly patient is a 74-year-old female with a history of pulmonary fibrosis and chronic respiratory failure who has had a rapid decline in her respiratory function starting this past June. Patient has been on no O2 prior to June, was started on 2 L, has required titration up to 10 L. Patient does have a family history of pulmonary fibrosis. Patient presented to the emergency room on 09/14 for increasing shortness of breath, patient was placed on Solu-Medrol and IV doxycycline. Patient reports no significant change in her respiratory status since admission. Patient gets short of breath with conversation, minimal exertion increases her shortness of breath as well as her anxiety. Patient requested PRN Ativan prior to transfer to bedside commode this afternoon as well as of PRN Ativan given earlier this a.m.. Patient reports weight loss despite a good appetite-her current weight is 142 pounds, she was 150 pounds approximately 1 year ago. Patient does not have a history of smoking, her PFTs showed no response with bronchodilators. Patient is , they have 1 son, Enoc, who does live nearby and is able to assist with care. -Discussed patient's goals of care-patient would like to return home, does not find hospitalization helpful any further. Patient amenable to hospice referral. Patient's and son are traveling to [place] for an appointment and are not available to speak to at this time. Patient stated she would like to move forward with hospice referral, she will talk to her and son this evening. -Collaborated with case management regarding hospice referral -diagnosis idiopathic pulmonary fibrosis and chronic respiratory failure -Current CODE STATUS is DNR Allergies Allergy/AdvReac Type Severity Reaction Status Date / Time Sulfa (Sulfonamide Allergy Unknown ITCHING Verified 09/15/19 17:11 Antibiotics) AND RASH Sulfa Drugs Allergy Mild Rash Uncoded 09/15/19 17:11 Home Medications Home Medications Medication Instructions Recorded Confirmed Type aspirin 81 mg PO DAILY 04/26/18 09/15/19 History cholecalciferol (vitamin D3) 2,000 unit PO DAILY 04/26/18 09/15/19 History [Vitamin D3] lisinopril 10 mg PO DAILY 04/26/18 09/15/19 History simvastatin 20 mg PO DAILY 04/26/18 09/15/19 History triamterene-hydrochlorothiazid 1 tab PO DAILY 04/26/18 09/15/19 History omeprazole 10 mg PO DAILY 06/27/19 09/15/19 History doxycycline hyclate 100 mg PO BID #18 cap 06/28/19 09/15/19 Rx Patient History Medical History Chronic hypoxemic respiratory failure Dyspnea and respiratory abnormalities GERD (gastroesophageal reflux disease) Hypercalcemia Idiopathic interstitial pneumonia Surgical History H/O bilateral breast reduction surgery History of bunionectomy History of salpingo-oophorectomy Hx of cholecystectomy (Resolved) Family History Other Colorectal cancer Pulmonary fibrosis Social History Preferred Language: Japanese Communication Ability: Effective Dental Biller Required: No Beliefs That Will Affect Care: None marital status: Current Living Situation: Spouse current occupational status: retired Feels Safe at Home: Yes Safety Concerns: Feels Safe At This Time Smoking Status: Never smoker Second Hand Exposure: No ; Hx Alcohol Use: No Hx Substance Use: No Review of Systems Review of Systems: Patient denies fever, chills, chest pain, abdominal pain Positive for increasing shortness of breath with minimal exertion, positive for increase O2 requirements, positive for anxiety. Physical Exam Physical Exam: PE: Patient alert, awake and oriented, comfortable on 10 L of O2 at rest HEENT: EOMI, hearing within normal limits Respirations: Diminished breath sounds bilaterally, increased shortness of breath with conversation and minimal exertion CV: Regular rate, no edema Abdomen: Soft, nontender Neuro: Alert and oriented x4 Results & Data Vital Signs (Past 12 Hours) Vital Signs Temp Pulse Pulse Resp BP Pulse Ox 09/16/19 11:22 97.9 F 82 18 132/78 91 09/16/19 09:46 85 09/16/19 07:09 98.1 F 84 22 155/80 H 94 09/16/19 02:40 97.5 F L 84 20 136/82 94 PG Care Time/CCT Total # of Minutes Spent Total Time Spent with Patient: Total time spent 55 minutes with greater than 50% of the time spent at bedside discussing patient's current condition, goals of care as well as care options. Collaborated with case management Coding Level of Care Code 16130 Inpt Consult Level 2 Diagnoses Palliative care encounter Z51.5 Acute on chronic respiratory failure with hypoxia J96.21 Anxiety F41.9 Time Spent (min) 55
--- NOTE | 2019-09-16 14:08 | Hospitalist Progress Note ---
Date of Service September 16, 2019 Assessment & Plan (1) Idiopathic interstitial pneumonia: Unclear exact diagnosis. - Continue IV steroids and abx - Will get procalcitonin level, total vitamin D, and PTH levels per pulm recommendations - DuoNebs PRN - Hospice referral (2) Anxiety: Complicated with shortness of breath. - Continue Ativan PRN (3) Chronic hypoxemic respiratory failure: Was on room air until this spring; now up to 10L. - Continue O2 PRN (4) HTN (hypertension): BP is 130/80 today. - Medication list is out-of-date. Not on Maxide at all and only on lisinopril 5 mg. - Stop both for now; monitor BP (5) DVT prophylaxis: Lovenox 40 mg SQ daily Admission and Anticipated Discharge Date Admission Date: September 15, 2019 Subjective Less "edgy" at present due to Ativan. This is somewhat conflated with her shortness of breath and are hard to untangle. Reports no fevers/chills, chest pain, abdominal pain, nausea, or vomiting. Physical Exam Constitutional: WD/WN, vitals as above Eyes: EOM intact bilaterally; no conjunctival abnormality ENMT: external ear and nose normal, oropharynx normal Neck: trachea midline, no thyromegaly normal visual inspection Respiratory: normal respiratory effort, lungs clear to auscultation no respiratory distress Cardiovascular: RRR, no murmur, no edema Gastrointestinal (Abdomen): Inspection/Auscultation: abdomen normal to inspection; abdomen not distended Musculoskeletal: no cyanosis or clubbing, extremities motor strength 5/5 Skin: no rashes, warm and dry Neurologic: moves all extremities and awake Psychiatric: Orientation: alert, oriented to person and cooperative Results & Data Results & Data ([facility]) Vital Signs (Past 12 Hours) Vital Signs Temp Pulse Pulse Resp BP Pulse Ox 09/16/19 11:22 36.6 C 82 18 132/78 91 09/16/19 09:46 85 09/16/19 07:09 36.7 C 84 22 155/80 H 94 09/16/19 02:40 36.4 C L 84 20 136/82 94 PG Care Time/CCT Total # of Minutes Spent Total Time Spent with Patient: Total time spent is greater than 50% in coordination of care (as documented) at patient's floor/unit and/or counseling patient: Coding Level of Care Code 22510 Subseq Hosp Care Lvl 3 Diagnoses Idiopathic interstitial pneumonia J84.111 Anxiety F41.9 Chronic hypoxemic respiratory failure J96.11 HTN (hypertension) I10 DVT prophylaxis Z29.9
[2019-09-16] MEDS ORDERED: OPTIRAY 320 125ml IV PRN (15:14)
--- NOTE | 2019-09-16 15:27 | CT Scan Report ---
CHEST CTA for PULMONARY ARTERIES CT DOSE: 306.54 mGy.cm HISTORY: PE; rapid increase in dyspnea TECHNIQUE: Multiaxial CT images of the chest were performed following the intravenous administration of contrast to evaluate the pulmonary arteries. Maximal intensity projection images were also obtaine d. A dose lowering technique was utilized adhering to the principles of ALARA. COMPARISON STUDY: Chest CT 08/23/2019. Chest CTA 06/27/2019. FINDINGS: Normal caliber thoracic aorta with no evidence for dissection. The heart remains borderline enlarged. No pericardial effusions. No filling defects within the pulmonary arteries to suggest pulm onary embolus. Limited views of the upper abdomen demonstrate a normal liver and spleen. The visualiz ed adrenal glands are unremarkable. Cholecystectomy. Trace left pleural effusion. Normal esophagus. N o significant change in the mediastinal and bilateral hilar lymphadenopathy. Dominant right paratrach eal lymph node measures 15 mm in short axis diameter. No suspicious lytic or blastic osseous lesions. No pneumothorax. The central airways are patent. Mild respiratory motion artifact. No significant ch tanika in the low lung volumes, diffuse interstitial thickening, peripheral honeycombing, near diffuse groundglass densities and mild traction bronchiectasis. This is consistent with usual interstitial pn eumonitis. No new focal lung consolidations to suggest pneumonia. IMPRESSION: 1. No evidence for pulmonary embolus. 2. No change in the chronic interstitial lung disease likely representing usual interstitial pneumoni tis. 3. Persistent mediastinal and bilateral hilar lymphadenopathy. 4. Trace left pleural effusion. ACT 112: Negative or not required by law. Electronically signed by: Buddy Silverio M.D. 09/16/2019 3:26 PM
[2019-09-16] MEDS: LORazepam 0.5 MG TAB PO SCH (20:49)
--- NOTE | 2019-09-17 01:57 | Billing Data ---
Date of Service September 17, 2019 Coding Level of Care Code 36886 Initial Inpt Care Lvl 3
[2019-09-17] MEDS: methylPREDNISolone 60 MG in SYRINGE 0 ML IV SCH ×2 (05:42→12:03)
[2019-09-17 07:54] LABS: Hemoglobin 10.9 g/dL (12.0-16.0); Mean Corpuscular Hemoglobin 29.1 pg (25-34); Mean Corpuscular Hgb Conc 34.1 g/dL (32-36); Mean Corpuscular Volume 85.6 fL (80-100); Mean Platelet Volume 10.3 fL (7.4-10.4); Platelet Count 360 K/uL (130-400); RDW Coefficient of Variation 12.7 % (11.5-14.5); RDW Standard Deviation 39.2 fL (36.4-46.3); Red Blood Count 3.74 M/uL (4.2-5.4); White Blood Count 22.87 K/uL (4.8-10.8)
[2019-09-17 08:06] LABS: BUN Creatinine Ratio 24.7 (10-20); Calcium 10.5 mg/dl (8.5-10.1); Creatinine Clr Calc Pharmacy 57.6 ml/min; Est GFR (African American) 90.8; Est GFR (Non-African American) 78.4; Magnesium 1.9 mg/dl (1.8-2.4); Phosphorus 3.3 mg/dl (2.5-4.9); Potassium 3.9 mmol/L (3.5-5.1)
[2019-09-17] MEDS: DOXYCYCLINE HYCLATE 100 MG in DEXTROSE 5% 100 ML IV SCH (08:52)
[2019-09-17] MEDS: SIMVASTATIN 20 MG TAB PO SCH (08:52)
[2019-09-17] MEDS: LORazepam 0.5 MG TAB PO SCH (08:52)
[2019-09-17] MEDS: ASPIRIN 81 MG ECTAB PO SCH (08:52)
[2019-09-17] MEDS: PANTOprazole 40 MG TAB PO SCH (08:53)
--- NOTE | 2019-09-17 15:51 | Discharge Summary ---
Date of Service September 17, 2019 Admission HPI Per Admitting Provider The patient is a 74-year-old female with a past medical history including idiopathic pulmonary fibrosis, hypertension, hyperlipidemia and GERD. The patient presents to the emergency department with complaint of worsening shortness of breath over the past several weeks. She was started on 2L oxygen when she was last discharged from the hospital in June. She was having difficulty walking at home which had increased progressively to 8L oxygen at home. 2 weeks ago she was increased to 10L oxygen. She explains that she is only able to walk with "baby steps". She has not been sleeping well lying down and has to sleep a chair. She has not eaten in the last day, she had a ensure drink, she attributes this to poor appetite. She was having anxiety recently and had been taking Lorazepam yesterday night and at 3AM this morning. She does not typically use any inhalers or nebulizers. She does follow with pulmonology, locally Dr. Juarez and in [place] Dr. Francis. She has seen him over video conference last in mid July. There was no clear cause for her lung disease, she has no smoking history. Her mother did have lung disease but was never on oxygen at home. She denies any known sick exposures, no recent travel, no fevers, no loss of taste or smell, no GI symptoms, she has a cough. She informed me that she was not a candidate for a lung transplant due to her age and the complications of a transplant. She asked about hospice, she was concerned with her prognosis but didn't know. Principal Diagnosis IPF Discharge Exam Constitutional WD/WN, vitals as above Eyes EOM intact bilaterally; no conjunctival abnormality ENMT external ear and nose normal, oropharynx normal Neck trachea midline, no thyromegaly normal visual inspection Respiratory no respiratory distress Auscultation: + crackles (Diffuse) Cardiovascular RRR, no murmur, no edema Gastrointestinal (Abdomen) Inspection/Auscultation: abdomen normal to inspection; abdomen not distended Musculoskeletal no cyanosis or clubbing, extremities motor strength 5/5 Skin no rashes, warm and dry Neurologic moves all extremities and awake Psychiatric Orientation: alert, oriented to person and cooperative Discharge Data Allergies Allergy/AdvReac Type Severity Reaction Status Date / Time Sulfa (Sulfonamide Allergy Unknown ITCHING Verified 09/15/19 17:11 Antibiotics) AND RASH Sulfa Drugs Allergy Mild Rash Uncoded 09/15/19 17:11 Consultations 09/15/19 21:15 Consult Pulmonology Routine 09/15/19 21:16 ED Decision to Admit Stat 09/15/19 22:40 Consult Palliative Care Stat Ordered Studies 09/16/19 14:13 CT angio chest PE protocol Routine Hospital Course (1) Idiopathic interstitial pneumonia: Unclear exact diagnosis. - Continued IV steroids and abx while inpatient. - Procalcitonin level, total vitamin D, and PTH levels per pulm recommendations were all not very elucidative. CTA chest looking for PE, pneumonia, or other acu te process was stable from priors. - Discharged home on hospice as this feels more related to her long-term, ongoing IPF rather than a correctible, reversible acute issue. (2) Anxiety: Complicated with shortness of breath. - Continue Ativan standing and PRN - Consider morphine PRN (3) Chronic hypoxemic respiratory failure: Was on room air until this spring; now up to 10L. Weaned back to 3L by discharge. - Continue O2 PRN (4) HTN (hypertension): BP is 130/80 today. - Medication list is out-of-date. Not on Maxide at all and only on lisinopril 5 mg. - Stop both for now; monitor BP (5) DVT prophylaxis: Lovenox 40 mg SQ daily Total Time Total Time Spent Total Time Spent (In Minutes): 35 Discharge Plan Discharge Items Patient Disposition: Hospice - Home Reason For Visit: SHORTNESS OF BREATH Discharge Diagnosis: Idiopathic pulmonary fibrosis Activity: Resume your previous activity Non-emergency contact: Primary Care Provider Call non-emergency contact if: your symptoms worsen Follow-up/Referrals: Serafin Strickland MD [Primary Care Provider] - Diet: Regular Addtl Attending Provider Instructions: Ms. Haddad, You were admitted with worsening breathing which we feel is a result of your pulmonary fibrosis. We did a CT scan of your lungs that did NOT show a blood clot, pneumonia, or other active/acute issue. Unfortunately, this means we feel your breathing is worsening due to your ongoing, chronic lung fibrosis. You have elected to go home on hospice which will help you get home and stay home. Please use the medications we have sent you home with to help with your shortness of breath and understandable anxiety. Hospice will help you adjust these medications to treat your symptoms as best as possible. Pending Studies at Discharge: No Stand-Alone Forms: My [facility] Medications and DC Order Prescriptions: New acetaminophen 325 mg Tablet 650 mg PO Q4H PRN (Reason: fever or pain) Qty: 1 RF: 0 lorazepam 0.5 mg Tablet 0.5 mg PO Q6H PRN (Reason: anxiety) Qty: 2 RF: 0 lorazepam 0.5 mg Tablet 0.5 mg PO BID Qty: 2 RF: 0 morphine 20 mg/5 mL (4 mg/mL) solution 4 mg PO Q6H PRN (Reason: Pain or shortness of breath) Qty: 100 RF: 0 Continued omeprazole 40 mg capsule,delayed release(DR/EC) 10 mg PO DAILY RF: 0 doxycycline hyclate 100 mg Capsule 100 mg PO BID Qty: 18 RF: 0 Discontinued aspirin 81 mg Tablet,Delayed Release (Dr/Ec) 81 mg PO DAILY RF: 0 simvastatin 20 mg Tablet 20 mg PO DAILY RF: 0 lisinopril 10 mg Tablet 5 mg PO DAILY RF: 0 cholecalciferol (vitamin D3) [Vitamin D3] 2,000 unit Tablet 2,000 unit PO DAILY RF: 0 Discharge Orders: Discharge Order (Routine); Ordered 09/17/19 Ordered By: Mars Moura Admission Data Admit Date/Time: 09/15/19 21:15 Attending Provider: Mars Moura Admit Provider: Phi Kowalski Primary Care Provider: Serafin Strickland Other Providers: Sharon Oviedo ; Martha Urbina ; Mars Moura Other Interventions: Discharge Summary Assessment (RN) Last Done: 09/17/19 15:08 Coding Level of Care Code D/C Day Management >30 mins Diagnoses Idiopathic interstitial pneumonia J84.111 Anxiety F41.9 Chronic hypoxemic respiratory failure J96.11 HTN (hypertension) I10 DVT prophylaxis Z29.9
[2019-09-17] MEDS: LORazepam 0.5 MG TAB PO PRN (15:56)
== END 2019-09-17 16:20 | disposition hospice, home (50) | DRG 196 ==
LOC: ED 16:32 → 2N 21:15 → SUATTDRO 21:15 → 2N 22:00